=== PATIENT | male | born 1950 | race Caucasian/White ===

== ENCOUNTER 2017-01-18 12:16 | Emergency (ER) | payer MEDICARE ==
[~2017-01-18] VITALS: Ht 193 cm; Wt 123.4 kg
[~2017-01-18 12:16] MED LIST: ALBU8.5H2 IH; CEFD300C3 PO; CODE-54 PO; FLUT16SP22 NS; HYDR473S17 PO; LISI10TA PO; MNTL10T PO; OMEP-10 PO; ONDA-42 PO; OSLT75CRX PO; PENI500T PO; PRAV80TA2 PO
--- NOTE | 2017-01-18 13:57 | ED GI ---
General Chief Complaint: Abdominal/GI Problems Stated Complaint: ABDOMINAL PAIN Nursing Triage Note: ABD PAIN/CRAMPING X 4 WEEKS, MUCOUS STOOLS. HAS HAD 2-3 REGULAR BM LAST WEEK. HAD HAD RECENT CHANGE IN DIET FOR WEIGHT LOSS. HAD LEFT OVER PENICILLIN FROM APPROX 1 YEAR AGO AND SAW IMPROVEMENT WHILE TAKING, THEN RETURNED WHEN STOPPED TAKING. PT AMB INTO EXAM ROOM WITHOUT DIFFICULTY Sepsis Screen: No Definite Risk Source of Information: Patient Exam Limitations: No Limitations History of Present Illness Time Seen By Provider: 13:55 Initial Comments To ER with abdominal pain and cramping for 4 weeks. He's had some mucus in his stools but no apparent blood. No nausea or vomiting. No fevers or chills. He had some leftover penicillin from a dentist that he kept in his freezer. He finished a seven-day course of this last week which seemed to improve his symptoms. Timing/Duration: Intermittent Severity/Quality: Moderate Location: Suprapubic Radiation: No Radiation Associated Symptoms: No Nausea/Vomiting Allergies and Home Medications Allergies Coded Allergies: No Known Drug Allergies (Unverified , 09/10/11) Home Medications Acetaminophen/Codeine 1 Tab Tablet, 1 TAB PO, (Reported) Albuterol 8.5 Gm Hfa.aer.ad, 1 PUFF IH RTQ4HR, (Reported) 1 PUFFS Lisinopril 10 Mg Tablet, 10 MG PO DAILY, (Reported) Montelukast Sodium 10 Mg Tab, 10 MG PO DAILY, (Reported) Penicillin V Potassium 500 Mg Tablet, 1 TAB PO TID, #30 (Reported) Pravastatin Sodium 80 Mg Tablet, 80 MG PO DAILY, (Reported) Review of Systems Constitutional: see HPI EENTM: No Symptoms Reported Respiratory: No Symptoms Reported Cardiovascular: No Symptoms Reported Gastrointestinal: See HPI, Abdominal Pain, Denies Constipated, Denies Diarrhea , Denies Nausea Genitourinary: No Symptoms Reported Musculoskeletal: no symptoms reported Skin: no symptoms reported Psychiatric/Neurological: No Symptoms Reported Endocrine: No Symptoms Reported Past Dasigwr-Czxquh-Nsnxcm Hx Patient Social History Alcohol Use: Occasionally Uses Recreational Drug Use: No Smoking Status: Never a Smoker 2nd Hand Smoke Exposure: No Recent Foreign Travel: No Contact w/Someone Who Travel: No Recent Infectious Disease Expo: No Immunizations Up To Date Tetanus Booster (TDap): More than 5yrs Date of Influenza Vaccine: Jun 23, 2016 Seasonal Allergies Seasonal Allergies: Yes Surgeries HX Surgeries: Yes (Dental) Surgeries: Adenoidectomy, Tonsillectomy Respiratory Hx Respiratory Disorders: Yes Respiratory Disorders: Asthma Cardiovascular Hx Cardiac Disorders: Yes Cardiac Disorders: Hypertension Neurological Hx Neurological Disorders: No Reproductive System Hx Reproductive Disorders: No Sexually Transmitted Disease: No HIV/AIDS: No Genitourinary Hx Genitourinary Disorders: No Gastrointestinal Hx Gastrointestinal Disorders: No Musculoskeletal Hx Musculoskeletal Disorders: No Musculoskeletal Disorders: Fractures Endocrine Hx Endocrine Disorders: No HEENT HX ENT Disorders: No Cancer Hx Cancer: No Psychosocial Hx Psychiatric Problems: No Integumentary HX Skin/Integumentary Disorder: No Blood Transfusions Hx Blood Disorders: No Family Medical History Significant Family History: Heart Disease, COPD Physical Exam Vital Signs VS - Last 72 Hours, by Label 01/18/17 12:53 Temp 97.3 Pulse 94 Resp 18 B/P (MAP) 144/89 Pulse Ox 97 O2 Delivery Room Air Capillary Refill : Less Than 3 Seconds General Appearance: WD/WN, no apparent distress HEENT: PERRL/EOMI, normal ENT inspection Respiratory: no respiratory distress, no accessory muscle use Cardiovascular: regular rate, rhythm, no murmur Gastrointestinal: normal bowel sounds, non tender, soft Extremities: normal range of motion, non-tender Neurologic/Psychiatric: alert, normal mood/affect, oriented x 3 Progress/Results/Core Measures Results/Orders Lab Results Laboratory Tests Test 01/18/17 14:45 Range/Units White Blood Count 6.7 4.3-11.0 10^3/uL Red Blood Count 5.21 4.35-5.85 10^6/uL Hemoglobin 16.2 13.3-17.7 G/DL Hematocrit 45 40-54 % Mean Corpuscular Volume 87 80-99 FL Mean Corpuscular Hemoglobin 31 25-34 PG Mean Corpuscular Hemoglobin Concent 36 32-36 G/DL Red Cell Distribution Width 12.6 10.0-14.5 % Platelet Count 202 130-400 10^3/uL Mean Platelet Volume 11.2 H 7.4-10.4 FL Neutrophils (%) (Auto) 63 42-75 % Lymphocytes (%) (Auto) 27 12-44 % Monocytes (%) (Auto) 9 0-12 % Eosinophils (%) (Auto) 1 0-10 % Basophils (%) (Auto) 0 0-10 % Neutrophils # (Auto) 4.2 1.8-7.8 X 10^3 Lymphocytes # (Auto) 1.8 1.0-4.0 X 10^3 Monocytes # (Auto) 0.6 0.0-1.0 X 10^3 Eosinophils # (Auto) 0.1 0.0-0.3 10^3/uL Basophils # (Auto) 0.0 0.0-0.1 10^3/uL Sodium Level 138 135-145 MMOL/L Potassium Level 4.4 3.6-5.0 MMOL/L Chloride Level 106 98-107 MMOL/L Carbon Dioxide Level 20 L 21-32 MMOL/L Anion Gap 12 5-14 MMOL/L Blood Urea Nitrogen 13 7-18 MG/DL Creatinine 0.99 0.60-1.30 MG/DL Estimat Glomerular Filtration Rate > 60 BUN/Creatinine Ratio 13 Glucose Level 108 H 70-105 MG/DL Calcium Level 9.8 8.5-10.1 MG/DL Total Bilirubin 1.8 H 0.1-1.0 MG/DL Aspartate Amino Transf (AST/SGOT) 24 5-34 U/L Alanine Aminotransferase (ALT/SGPT) 28 0-55 U/L Alkaline Phosphatase 57 40-136 U/L Total Protein 7.3 6.4-8.2 G/DL Albumin 4.6 H 3.2-4.5 G/DL My Orders Orders - OMI WHITE APRN Ua Culture If Indicated (01/18/17 13:37) Cbc With Automated Diff (01/18/17 13:37) Comprehensive Metabolic Panel (01/18/17 13:37) Saline Lock/Iv-Start (01/18/17 13:37) Stool Culture (01/18/17 13:37) C Difficile Ag + Toxin A/B. (01/18/17 13:37) Ova And Parasite Exam (01/18/17 13:54) Ct Abdomen/Pelvis W (01/18/17 13:54) Saline Lock/Iv-Start (01/18/17 13:54) Iohexol Injection (Omnipaque 350 Mg/Ml 1 (01/18/17 14:15) Sodium Chloride Flush (Catheter Flush Sy (01/18/17 14:15) Ns (Ivpb) (Sodium Chloride 0.9% Ivpb Bag (01/18/17 14:15) Medications Given in ED Current Medications Medications Dose Ordered Sig/Jaspreet Route Start Time Stop Time Status Last Admin Dose Admin Iohexol 100 ml ONCE ONCE IV 01/18/17 14:15 01/18/17 14:16 DC 01/18/17 15:32 100 ML Sodium Chloride 10 ml NEEDED PRN IV 01/18/17 14:15 01/18/17 15:32 10 ML Sodium Chloride 100 ml ONCE ONCE IV 01/18/17 14:15 01/18/17 14:16 DC 01/18/17 15:32 80 ML Vital Signs/I&O Vital Sign - Last 12Hours 01/18/17 12:53 Temp 97.3 Pulse 94 Resp 18 B/P (MAP) 144/89 Pulse Ox 97 O2 Delivery Room Air Blood Pressure Mean: 107 Diagnostic Imaging Diagonstic Imaging: CT Comments NAME: EYAD GUERIN [facility] REC#: [id number] PT STATUS: REG ER : 1950 PHYSICIAN: OMI WHITE FUNDRAISING COORDINATOR ADMIT DATE: 01/18/17/ER Draft Date of Exam:01/18/17 CT ABDOMEN/PELVIS W PROCEDURE: CT abdomen and pelvis with contrast. TECHNIQUE: Multiple contiguous axial images were obtained through the abdomen and pelvis after administration of intravenous contrast. INDICATION: Diarrhea with low pelvic pain x 4 weeks. FINDINGS: The lung bases are clear. The liver appears normal. The gallbladder and bile ducts are normal. The pancreas and spleen are normal. The adrenal glands are normal. The kidneys show symmetrical nephrogram effect following IV contrast. There is a simple cyst anteriorly off the upper pole of the left kidney measuring 15 mm. There are no renal calculi. There is a tiny cyst off the upper pole of the right kidney. There are no solid masses. Delayed images show normal-appearing renal collecting systems bilaterally. The bladder is opacified and appears normal. The aorta and abdominal vessels show normal enhancement with contrast. Mild atherosclerotic disease is present. No evidence of aortic aneurysm. The stomach and small bowel are not distended. There is a moderate amount of stool retained in the colon. There is a 3 cm area of persistent stricture on the arterial and delayed phase in the distal sigmoid colon, likely representing an apple core lesion. No adenopathy is demonstrated in the pelvis. Bone windows show no blastic or lytic lesions. IMPRESSION: 1. Findings suggestive of an apple core lesion of the distal sigmoid colon measuring 3 cm in length. I would recommend direct visualization. 2. No findings are seen to demonstrate distant metastasis or adenopathy. 3. Benign cortical cysts are noted in the kidneys bilaterally. Dictated on workstation # [id number] Dict: 01/18/17 1548 Trans: 01/18/17 1607 [id number] Interpreted by: SACHA VELASQUEZ MD Electronically signed by: Departure Impression Impression: Primary Impression: lesion of sigmoid colon Disposition: HOME, SELF-CARE Condition: Stable Departure-Patient Inst. Decision time for Depature: 16:12 Referrals: SACHA MANCINI BRETT D DO JENKINS, XAVIER M MD KIDO, TAKAAKI MD NO,LOCAL PHYSICIAN (PCP) Primary Care Physician Patient Instructions: NO INSTRUCTIONS GIVEN Add. Discharge Instructions: 1. We have a sample of your stool that has been sent to the lab for evaluation for culture, parasites and C. difficile 2. Call one of the surgeons listed on Saturday morning to make an appointment for colonoscopy as there is a very concerning appearance of your sigmoid colon called an apple core appearance All discharge instructions reviewed with patient and/or family. Voiced understanding. OMI WHITE FUNDRAISING COORDINATOR Jan 18, 2017 13:56
[2017-01-18] MEDS ORDERED: NS 100 ML (IVPB) BAG IV ONE (14:15)
[2017-01-18] MEDS ORDERED: IOHEXOL 350 MG/ML 100 ML (OMNIPAQUE 350) VIAL IV ONE (14:15)
[2017-01-18] MEDS ORDERED: CATHETER FLUSH 10 ML SYR IV PRN (14:15)
[2017-01-18 14:56] LABS: BASOPHILS % (AUTO) 0 % (0-10); EOSINOPHILS # (AUTO) 0.1 10^3/uL (0.0-0.3); EOSINOPHILS % (AUTO) 1 % (0-10); LYMPHOCYTES # (AUTO) 1.8 X 10^3 (1.0-4.0); LYMPHOCYTES % (AUTO) 27 % (12-44); MEAN CORPUSCULAR HEMOGLOBIN 31 PG (25-34); MEAN CORPUSCULAR HGB CONC 36 G/DL (32-36); MEAN CORPUSCULAR VOLUME 87 FL (80-99); MEAN PLATELET VOLUME 11.2 FL (7.4-10.4); MONOCYTES # (AUTO) 0.6 X 10^3 (0.0-1.0); MONOCYTES % (AUTO) 9 % (0-12); NEUTROPHILS # (AUTO) 4.2 X 10^3 (1.8-7.8); NEUTROPHILS % (AUTO) 63 % (42-75); PLATELET COUNT 202 10^3/uL (130-400); RED BLOOD COUNT 5.21 10^6/uL (4.35-5.85); RED CELL DISTRIBUTION WIDTH 12.6 % (10.0-14.5); WHITE BLOOD COUNT 6.7 10^3/uL (4.3-11.0)
[2017-01-18 15:13] LABS: ALANINE AMINOTRANSFERASE 28 U/L (0-55); ALBUMIN 4.6 G/DL (3.2-4.5); ANION GAP 12 MMOL/L (5-14); ASPARTATE AMINO TRANSFERASE 24 U/L (5-34); BILIRUBIN,TOTAL 1.8 MG/DL (0.1-1.0); BLOOD UREA NITROGEN 13 MG/DL (7-18); BUN/CREATININE RATIO 13; CALCIUM 9.8 MG/DL (8.5-10.1); CARBON DIOXIDE 20 MMOL/L (21-32); CHLORIDE 106 MMOL/L (98-107); CREATININE SERUM 0.99 MG/DL (0.60-1.30); GFR ESTIMATED > 60; GLUCOSE 108 MG/DL (70-105); POTASSIUM 4.4 MMOL/L (3.6-5.0); SODIUM 138 MMOL/L (135-145); TOTAL PROTEIN 7.3 G/DL (6.4-8.2)
--- NOTE | 2017-01-18 16:07 | Diagnostic Imaging Report ---
PROCEDURE: CT abdomen and pelvis with contrast. TECHNIQUE: Multiple contiguous axial images were obtained through the abdomen and pelvis after administration of intravenous contrast. INDICATION: Diarrhea with low pelvic pain x 4 weeks. FINDINGS: The lung bases are clear. The liver appears normal. The gallbladder and bile ducts are normal. The pancreas and spleen are normal. The adrenal glands are normal. The kidneys show symmetrical nephrogram effect following IV contrast. There is a simple cyst anteriorly off the upper pole of the left kidney measuring 15 mm. There are no renal calculi. There is a tiny cyst off the upper pole of the right kidney. There are no solid masses. Delayed images show normal-appearing renal collecting systems bilaterally. The bladder is opacified and appears normal. The aorta and abdominal vessels show normal enhancement with contrast. Mild atherosclerotic disease is present. No evidence of aortic aneurysm. The stomach and small bowel are not distended. There is a moderate amount of stool retained in the colon. There is a 3 cm area of persistent stricture on the arterial and delayed phase in the distal sigmoid colon, likely representing an apple core lesion. No adenopathy is demonstrated in the pelvis. Bone windows show no blastic or lytic lesions. IMPRESSION: 1. Findings suggestive of an apple core lesion of the distal sigmoid colon measuring 3 cm in length. I would recommend direct visualization. 2. No findings are seen to demonstrate distant metastasis or adenopathy. 3. Benign cortical cysts are noted in the kidneys bilaterally. Dictated by: Dictated on workstation # [id number]
[2017-01-18 17:03] VITALS: BP 151/95
== END 2017-01-18 16:28 | disposition home or self-care (01) ==
LOC: EDUNIT# 12:16 → ER 12:19
DX: K63.9 Disease of intestine, unspecified (principal); N28.1 Cyst of kidney, acquired; I10 Essential (primary) hypertension; Z79.899 Other long term (current) drug therapy
CPT/HCPCS: 36415; 74177; 80053; 85025; 87045; 87046; 87324; 87328; 87329; 87449

== ENCOUNTER 2017-01-24 09:41 | Outpatient (CLI) | payer MEDICARE ==
[~2017-01-24] VITALS: Ht 193 cm; Wt 123.4 kg
[2017-01-25] MEDS ORDERED: CYCL1DRO OP (12:38)
== END 2017-01-24 13:52 ==
LOC: PREOP 09:41
PROVIDERS: ATTEND Surgery
DX: Z01.818 Encounter for other preprocedural examination (principal); R19.7 Diarrhea, unspecified

== ENCOUNTER 2017-01-25 11:57 | Day surgery (SDC) | payer MEDICARE ==
[~2017-01-25] VITALS: Ht 193 cm; Wt 123.4 kg
[2017-01-25] MEDS ORDERED: NS IV 500 ML 500 ML ONE (12:11)
[2017-01-25] MEDS ORDERED: FLUMAZENIL (ROMAZICON) 0.1 MG/ML 5 ML VIAL INJ PRN (12:15)
[2017-01-25] MEDS ORDERED: NALOXONE 0.4 MG/ML 1 ML (NARCAN) VIAL IVP PRN (12:15)
[2017-01-25] MEDS ORDERED: MIDAZOLAM 2 MG/2 ML (VERSED) VIAL ONE ×3 (12:23→12:24)
[2017-01-25] MEDS ORDERED: fentaNYL INJECTION 100 MCG/2 ML AMP ONE ×2 (12:24)
[2017-01-25] MEDS ORDERED: NS IV 500 ML 500 ML IV PRN (12:30)
[2017-01-25 12:34] VITALS: BP 130/71
[2017-01-25] MEDS ORDERED: CYCL1DRO OP (12:38)
[2017-01-25] MEDS: fentaNYL INJECTION 100 MCG/2 ML AMP IVP PRN ×2 (13:05→13:12)
[2017-01-25] MEDS: MIDAZOLAM 2 MG/2 ML (VERSED) VIAL IVP PRN ×3 (13:06→13:20)
--- NOTE | 2017-01-25 13:50 | Conscious Sedation/ASA ---
Conscious Sedation Pre-Proced ASA Class: 2 Airway Mallampati Classification: ([place] appropriate class) I. II. III, IV Lungs Heart ASA score ASA 1: a normal healthy patient ASA 2: a patient with a mild systemic disease (mid diabetes, controlled hypertension, obesity ASA 3: a patient with a severe systemic disease that limits activity (angina , COPD, prior Myocardial infarction) ASA 4: a patient with an incapacitating disease that is a constant threat to life (CHF, renal failure) ASA 5: a moribund patient not expected to survive 24 hrs. (ruptured aneurysm) ASA 6: a declared brain patient whose organs are being harvested. For emergent operations, add the letter E after the classification Grade 2 Sedation Plan: Discussed options with patient/fam Note The patient is an appropriate candidate to undergo the planned procedure, sedation, and anesthesia. The patient immediately re-assessed prior to indication. JHOAN DASILVA MD January 25, 2017 1:50 pm
--- NOTE | 2017-01-25 13:54 | Endoscopy Procedure Report ---
Endoscopy Report Date: January 25, 2017 Preoperative Diagnosis: Change in bowel habits Study Performed: Colonoscopy Procedure Instrument: Colonoscope Endo Procedure/Findings Findings 1.: Diverticulosis Recommendations: Recommendations: 1.: Colonscopy in 5 years JHOAN DASILVA MD January 25, 2017 1:54 pm
[2017-01-25 13:55] VITALS: BP 126/73
--- NOTE | 2017-01-25 14:03 | Discharge Inst-Simple/Standard ---
Discharge Inst-Standard Discharge Medications New, Converted or Re-Newed RX: Other Patient Instructions/Follow Up Plan of Care/Instructions/FU: F/u Prn Activity as Tolerated: Yes Discharge Diet: No Restrictions JHOAN DASILVA MD January 25, 2017 2:03 pm
[2017-01-25 14:45] VITALS: BP 136/82
[2017-01-25 14:52] VITALS: BP 136/82
--- NOTE | 2017-01-26 07:37 | OPERATIVE REPORT ---
DATE OF SERVICE: 01/25/2017 PROCEDURE: Colonoscopy. SURGEON: Jhoan Dasilva MD INDICATION OF PROCEDURE: This gentleman reported a change in his bowel habits. Informed consent was obtained after revealing the procedure in detail. DESCRIPTION OF PROCEDURE: He was placed in the left lateral decubitus position and his vital signs were monitored. Conscious sedation was achieved using Versed and fentanyl. Digital rectal examination was unremarkable. The colonoscope was then introduced in the rectum and advanced all the way up to the cecum. The quality of bowel preparation was rather sub-optimal. However, I was able to irrigate the mucosa and complete the examination. The scope was then withdrawn slowly and the mucosa examined in a systematic fashion. FINDINGS: A very few, sigmoid diverticula. No mucosal lesion was identified. He tolerated the procedure well and was taken back to the nursing area in stable condition. IMPRESSION: Change in bowel habits. Apple core deformity described on CT scan. No lesion identified on colonoscopy. Job ID: [id number] DocumentID: [id number] Dictated Date: 01/25/2017 13:41:50 Tallow Refiner Date: 01/26/2017 04:22:25 Dictated By: JHOAN DASILVA MD
== END 2017-01-25 14:54 | disposition home or self-care (01) ==
LOC: ENDO 11:57
PROVIDERS: ATTEND Surgery
DX: R19.4 Change in bowel habit (principal); K57.30 Diverticulosis of large intestine without perforation or abscess without bleeding

== ENCOUNTER → 2017-03-21 | Outpatient (CLI) | payer MEDICARE ==
[~2017-03-21] MED LIST changes: +CYCL1DRO OP
--- NOTE | 2017-03-21 16:23 | Diagnostic Imaging Report ---
PROCEDURE: US Carotid Duplex Bilateral. TECHNIQUE: Multiple real-time grayscale images were obtained over the carotid arteries in various projections bilaterally. Additional duplex Doppler and color Doppler images were also obtained. INDICATION: TIA. FINDINGS: Grayscale images demonstrate mild atherosclerotic plaque along the carotid bifurcation bilaterally. The color Doppler evaluation demonstrates patency of the common, internal and external carotid arteries bilaterally. There is antegrade flow demonstrated in both vertebral arteries. Peak systolic velocities in the right ICA are 73, 73 and 58 cm/s from proximal to distal and on the left 81, 60 and 61 cm/s. ICA/CCA ratios are up to 0.9 on the right side and up to 1 on the left. IMPRESSION: Mild plaque at the carotid bifurcation bilaterally with estimated underlying stenosis in the range of 0-40% bilaterally. Dictated by: Dictated on workstation # [id number]
== END ==
LOC: RAD 08:08
PROVIDERS: ATTEND Family Medicine
DX: G45.9 Transient cerebral ischemic attack, unspecified (principal)
CPT/HCPCS: 93880

== ENCOUNTER 2017-11-28 07:51 | Emergency (ER) | payer MEDICARE ==
[~2017-11-28] VITALS: Ht 193 cm; Wt 124.7 kg
--- OUTSIDE RECORDS SUMMARY | 2017-11-28 07:56 | XMS REPORT | Continuity of Care Document ---
Author Author [facility] Organization [facility] Address Unknown Phone Unavailable Allergies Active Description Code Type Severity Reaction Onset Reported/Identified Relationship to Patient Clinical Status Yes No Known Drug Allergies [id number] Drug Allergy Unknown N/A 09/10/2011 Medications There is no data. Problems Date Dx Coded Attending Type Code Diagnosis Diagnosed By 09/10/2011 Ot 558.9 09/10/2011 Ot 787.91 10/28/2014 DIONNE KINGSLEY Ot 487.1 10/28/2014 DIONNE KINGSLEY Ot 780.60 02/09/2015 OMI WHITE APRN Ot 473.9 02/09/2015 OMI WHITE APRN Ot 486 02/09/2015 OMI WHITE JUNIOR ACCOUNTANT Ot 786.2 02/25/2015 MARICHUY HAINES, VIRGEN T Ot 522.5 02/25/2015 MARICHUY HAINES, VIRGEN T Ot 525.9 01/18/2017 OMI WHITE APRN Ot I10 ESSENTIAL (PRIMARY) HYPERTENSION 01/18/2017 OMI WHITE APRN Ot K63.9 DISEASE OF INTESTINE, UNSPECIFIED 01/18/2017 OMI WHITE JUNIOR ACCOUNTANT Ot N28.1 CYST OF KIDNEY, ACQUIRED 01/18/2017 OMI WHITE JUNIOR ACCOUNTANT Ot R10.30 LOWER ABDOMINAL PAIN, UNSPECIFIED 01/18/2017 OMI WHITE JUNIOR ACCOUNTANT Ot Z79.899 OTHER [facility] (CURRENT) DRUG THERAPY 01/20/2017 OMI WHITE JUNIOR ACCOUNTANT Ot I10 ESSENTIAL (PRIMARY) HYPERTENSION 01/20/2017 OMI WHITE JUNIOR ACCOUNTANT Ot K63.9 DISEASE OF INTESTINE, UNSPECIFIED 01/20/2017 OMI WHITE JUNIOR ACCOUNTANT Ot N28.1 CYST OF KIDNEY, ACQUIRED 01/20/2017 OMI WHITE JUNIOR ACCOUNTANT Ot R10.30 LOWER ABDOMINAL PAIN, UNSPECIFIED 01/20/2017 OMI WHIET JUNIOR ACCOUNTANT Ot Z79.899 OTHER ANIMAL HUSBANDRY TECHNICIAN (CURRENT) DRUG THERAPY 01/25/2017 JHOAN DASILVA MD Ot R19.7 DIARRHEA, UNSPECIFIED 01/25/2017 JHOAN DASILVA MD Ot Z01.818 ENCOUNTER FOR OTHER PREPROCEDURAL EXAMIN 01/25/2017 JHOAN DASILVA MD, Ot K57.30 DVRTCLOS OF LG INT W/O PERFORATION OR AB 01/25/2017 JHOAN DASILVA MD Ot R19.4 CHANGE IN BOWEL HABIT 01/31/2017 JHOAN DASILVA MD Ot K57.30 DVRTCLOS OF LG INT W/O PERFORATION OR AB 01/31/2017 JHOAN DASILVA MD Ot R19.4 CHANGE IN BOWEL HABIT 03/15/2017 LARISSA HAINES, TIMMY Chavira Ot G45.9 TRANSIENT CEREBRAL ISCHEMIC ATTACK, UNSP 03/21/2017 LARISSA HAINES, TIMMY Chavira Ot G45.9 TRANSIENT CEREBRAL ISCHEMIC ATTACK, UNSP 03/21/2017 TIMMY DIAS MD Ot G45.9 TRANSIENT CEREBRAL ISCHEMIC ATTACK, UNSP 03/21/2017 TIMMY DIAS MD Ot G45.9 TRANSIENT CEREBRAL ISCHEMIC ATTACK, UNSP 03/27/2017 TIMMY DIAS MD C Ot G45.9 TRANSIENT CEREBRAL ISCHEMIC ATTACK, UNSP 04/12/2017 TIMMY DIAS MD C Ot G45.9 TRANSIENT CEREBRAL ISCHEMIC ATTACK, UNSP 04/19/2017 TIMMY DIAS MD C Ot G45.9 TRANSIENT CEREBRAL ISCHEMIC ATTACK, UNSP Procedures There is no data. Results Test Result Range Complete blood count (CBC) with automated white blood cell (WBC) differential - 01/18/17 14:45 Blood leukocytes automated count (number/volume) 6.7 10*3/uL 4.3-11.0 Blood erythrocytes automated count (number/volume) 5.21 10*6/uL 4.35-5.85 Venous blood hemoglobin measurement (mass/volume) 16.2 g/dL 13.3-17.7 Blood hematocrit (volume fraction) 45 % 40-54 Automated erythrocyte mean corpuscular volume 87 [foz_us] 80-99 Automated erythrocyte mean corpuscular hemoglobin (mass per erythrocyte) 31 pg 25-34 Automated erythrocyte mean corpuscular hemoglobin concentration measurement ( mass/volume) 36 g/dL 32-36 Automated erythrocyte distribution width ratio 12.6 % 10.0-14.5 Automated blood platelet count (count/volume) 202 10*3/uL 130-400 Automated blood platelet mean volume measurement 11.2 [foz_us] 7.4-10.4 Automated blood neutrophils/100 leukocytes 63 % 42-75 Automated blood lymphocytes/100 leukocytes 27 % 12-44 Blood monocytes/100 leukocytes 9 % 0-12 Automated blood eosinophils/100 leukocytes 1 % 0-10 Automated blood basophils/100 leukocytes 0 % 0-10 Blood neutrophils automated count (number/volume) 4.2 10*3 1.8-7.8 Blood lymphocytes automated count (number/volume) 1.8 10*3 1.0-4.0 Blood monocytes automated count (number/volume) 0.6 10*3 0.0-1.0 Automated eosinophil count 0.1 10*3/uL 0.0-0.3 Automated blood basophil count (count/volume) 0.0 10*3/uL 0.0-0.1 Comprehensive metabolic panel - 01/18/17 14:45 Serum or plasma sodium measurement (moles/volume) 138 mmol/L 135-145 Serum or plasma potassium measurement (moles/volume) 4.4 mmol/L 3.6-5.0 Serum or plasma chloride measurement (moles/volume) 106 mmol/L 98-107 Carbon dioxide 20 mmol/L 21-32 Serum or plasma anion gap determination (moles/volume) 12 mmol/L 5-14 Serum or plasma urea nitrogen measurement (mass/volume) 13 mg/dL 7-18 Serum or plasma creatinine measurement (mass/volume) 0.99 mg/dL 0.60-1.30 Serum or plasma urea nitrogen/creatinine mass ratio 13 NRG Serum or plasma creatinine measurement with calculation of estimated glomerular filtration rate > NRG Serum or plasma glucose measurement (mass/volume) 108 mg/dL 70-105 Serum or plasma calcium measurement (mass/volume) 9.8 mg/dL 8.5-10.1 Serum or plasma total bilirubin measurement (mass/volume) 1.8 mg/dL 0.1-1.0 Serum or plasma alkaline phosphatase measurement (enzymatic activity/volume) 57 U/L 40-136 Serum or plasma aspartate aminotransferase measurement (enzymatic activity/ volume) 24 U/L 5-34 Serum or plasma alanine aminotransferase measurement (enzymatic activity/volume ) 28 U/L 0-55 Serum or plasma protein measurement (mass/volume) 7.3 g/dL 6.4-8.2 Serum or plasma albumin measurement (mass/volume) 4.6 g/dL 3.2-4.5 C DIFFICILE AG + TOXIN A/B. - 01/18/17 15:44 RESULTS NEGATIVE FOR ANTIGEN AND TOXIN A/B NRG [id number] - 01/18/17 15:44 [id number] FOOTNOTE NRG Stool bacteria identification by culture - 01/18/17 15:44 Stool bacteria identification by culture N2 NRG Encounters ACCT No. Visit Date/Time Discharge Status Pt. Type Provider Facility Loc./Unit Complaint [id number] 03/21/2017 08:08:00 03/21/2017 23:59:59 CLS Outpatient LARISSA HAINES, TIMMY Chavira [facility] RAD G45.9 TIA [id number] 01/25/2017 11:57:00 01/25/2017 14:54:00 DIS Outpatient BROWN HAINES, JHOAN [facility] ENDO ABNORMAL CT/ STRICTURE/DIARRHEA/MUCUS/SCREENING [id number] 01/24/2017 09:41:00 01/24/2017 13:52:00 DIS Outpatient BROWN HAINES, JHOAN Hopkins [facility] PREOP COLONOSCOPY [id number] 01/18/2017 12:19:00 01/18/2017 16:28:00 DIS Emergency OMI WHITE APRN [facility] ER ABDOMINAL PAIN [id number] 02/25/2015 00:16:00 02/25/2015 03:07:00 DIS Emergency MARICHUY HAINES, VIRGEN [place]astume [facility] ER [id number] 02/09/2015 20:11:00 02/09/2015 21:32:00 DIS Emergency OMI WHITE APRN [facility] ER [id number] 10/28/2014 20:35:00 10/28/2014 22:34:00 DIS Emergency DIONNE KINGSLEY [facility] ER [id number] 09/10/2011 08:18:00 Document Registration
--- NOTE | 2017-11-28 08:37 | ED EENT ---
History of Present Illness General Chief Complaint: Oral/Throat Problems Stated Complaint: SWALLOWED TOOTHPICK Nursing Triage Note: PATIENT STATES THAT HE FELL ASLEEP CHEWING ON A TOOTHPICK TWO DAYS AGO. HE WOKE UP AND COULD NOT FIND THE TOOTH PICK AND HIS THROAT HAS BEEN "SCRATCHY" EVER SINCE. hE IS VERY CONCERNED THAT HE MAY HAVE SWALLOWED IT. Source: patient Exam Limitations: no limitations History of Present Illness Date Seen by Provider: Nov 28, 2017 Time Seen by Provider: 08:36 Initial Comments The patient is a 67-year-old white male who presents with a feeling of a scratchy throat. He reports that 2 days ago he fell asleep inadvertently with a toothpick in his mouth. When he arose he had a scratchy sensation in his throat. He could not find the toothpick. His first heard of this this morning and insisted he come here. He has had no difficulty swallowing. There is no abdominal pain. The toothpick was plastic. Location: throat Prearrival Treatment: no prearrival treatment Associated Symptoms: other (no dysphagia) Allergies and Home Medications Allergies Coded Allergies: No Known Drug Allergies (Unverified , 09/10/11) Home Medications Cyclosporine 1 Each Droperette, 1 EACH OP DAILY, (Reported) Patient Home Medication List Home Medication List Reviewed: Yes Review of Systems Constitutional: see HPI Eyes: No Symptoms Reported Ears: No Symptoms Reported Nose: no symptoms reported Mouth: no symptoms reported Throat: pain, hoarse Respiratory: no symptoms reported Cardiovascular: no symptoms reported Gastrointestinal: no symptoms reported Musculoskeletal: no symptoms reported Skin: no symptoms reported Neurological: No Symptoms Reported Hematologic/Lymphatic: No Symptoms Reported Immunological/Allergic: no symptoms reported Past Xpnyccg-Scptbb-Dcfmsn Hx Patient Social History Alcohol Use: Rarely Uses Alcohol Beverage of Choice: Beer Recreational Drug Use: No Smoking Status: Never a Smoker 2nd Hand Smoke Exposure: No Recent Foreign Travel: No Contact w/Someone Who Travel: No Recent Infectious Disease Expo: No Recent Hopitalizations: No Physical Abuse: No Sexual Abuse: No Immunizations Up To Date Tetanus Booster (TDap): More than 5yrs Date of Influenza Vaccine: Jun 23, 2016 Seasonal Allergies Seasonal Allergies: Yes Surgeries History of Surgeries: Yes (Dental) Surgeries: Adenoidectomy, Tonsillectomy Respiratory History of Respiratory Disorde: No Respiratory Disorders: Asthma Cardiovascular History of Cardiac Disorders: Yes (currently no longer needing meds) Cardiac Disorders: Hypertension Neurological History of Neurological Disord: No Reproductive System Hx Reproductive Disorders: No Sexually Transmitted Disease: No HIV/AIDS: No Gastrointestinal History of Gastrointestinal Di: Yes Musculoskeletal History of Musculoskeletal Dis: Yes (LEFT ARM AT 5 YRS, CLAVICLE IN HS) Musculoskeletal Disorders: Fractures Endocrine History of Endocrine Disorders: No Cancer History of Cancer: No Psychosocial History of Psychiatric Problem: No Suicide Risk Score: 0 Integumentary History of Skin or Integumenta: No Blood Transfusions History of Blood Disorders: No Family Medical History Significant Family History: Heart Disease, COPD Physical Exam Vital Signs Vital Signs - First Documented 11/28/17 07:59 Temp 97.9 Pulse 83 Resp 18 B/P (MAP) 175/112 (133) Pulse Ox 98 O2 Delivery Room Air General Appearance: WD/WN, no apparent distress, mild distress, moderate distress, severe distress, cachetic Eyes: bilateral eye normal inspection, bilateral eye PERRL, bilateral eye EOMI Mouth/Throat: normal mouth inspection, pharynx normal Neck: non-tender, full range of motion Cardiovascular: normal peripheral pulses, regular rate, rhythm, no edema, no gallop, no JVD, no murmur Respiratory: chest non-tender, lungs clear, normal breath sounds, no respiratory distress, no accessory muscle use Neurologic/Psychiatric: 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 Crook surgery on-call at 0840. He responded at 0850. After findings were discussed he suggested that I talked to Dr. Bosch as he felt that pharyngoscopy would be less invasive. Dr. Bosch was paged at 0850. After discussion and as he was about to start a case that was a one and half to 2 hours long he suggested that we have the patient returned to his office at 1230 FOR pharyngoscopy. This was arranged. Impression Impression: Primary Impression: Pharyngeal pain Additional Impression: possible impacted toothpick Disposition: HOME, SELF-CARE Condition: Stable/Unchanged Departure-Patient Inst. Decision time for Depature: 09:12 Referrals: TIMMY DIAS MD (PCP/Family) Primary Care Physician Add. Discharge Instructions: All discharge instructions reviewed with patient and/or family. Voiced understanding. Present to Dr Bosch's office in the [facility] block [facility] at 1230 today. Take only liquids until QUYEN LOVE MD Nov 28, 2017 08:37
[2017-11-28 09:24] VITALS: BP 178/102
== END 2017-11-28 09:27 | disposition home or self-care (01) ==
LOC: EDUNIT# 07:51 → ER 07:52
DX: R07.0 Pain in throat (principal); J45.909 Unspecified asthma, uncomplicated; Z82.49 Family history of ischemic heart disease and other diseases of the circulatory system; Z90.89 Acquired absence of other organs
CPT/HCPCS: 99282

== ENCOUNTER 2019-01-17 11:25 | Emergency (ER) | payer MEDICARE ==
[~2019-01-17] VITALS: Ht 193 cm; Wt 118.8 kg
--- NOTE | 2019-01-17 11:41 | ED Integumentary General ---
General Chief Complaint: Bite-Animal/Human/Insect Stated Complaint: TICK BITE Source: patient Exam Limitations: no limitations History of Present Illness Date Seen by Provider: Jan 17, 2019 Time Seen by Provider: 11:22 Initial Comments Patient reports ER by private conveyance with chief complaint that a tick bit him in his left armpit approximately one week ago. The tick was still flat when he pulled it off. He clean the site with alcohol and then some triple antibiotic ointment. He's not having any swelling tenderness discharge or rash. He's had no fevers chills or bodyaches. Apparently his son had a tick bite few weeks ago and ended up with a secondary infection it sounds like an abscess that had to be drained and put on antibiotics and so his insisted he come to the ER to have it checked out. Allergies and Home Medications Allergies Coded Allergies: No Known Drug Allergies (Unverified , 09/10/11) Home Medications Cyclosporine 1 Each Droperette, 1 EACH OP DAILY, (Reported) Patient Home Medication List Home Medication List Reviewed: Yes Review of Systems Review of Systems Constitutional: No chills, No diaphoresis EENTM: No ear discharge, No hearing loss Respiratory: No cough, No short of breath Cardiovascular: No chest pain, No edema Gastrointestinal: No abdominal pain, No constipation, No nausea Past Wvkdpvv-Lhlofn-Ygkalr Hx Patient Social History Alcohol Use: Occasionally Uses Alcohol Beverage of Choice: Beer Recreational Drug Use: No Smoking Status: Current Everyday Smoker 2nd Hand Smoke Exposure: No Recent Foreign Travel: No Contact w/Someone Who Travel: No Recent Hopitalizations: No Immunizations Up To Date Tetanus Booster (TDap): More than 5yrs Date of Influenza Vaccine: Jun 23, 2016 Seasonal Allergies Seasonal Allergies: Yes Past Medical History Surgeries: Yes (Dental) Adenoidectomy, Tonsillectomy Respiratory: No Asthma Cardiac: Yes (currently no longer needing meds) Hypertension Neurological: No Reproductive Disorders: No Sexually Transmitted Disease: No HIV/AIDS: No Gastrointestinal: Yes Musculoskeletal: Yes (LEFT ARM AT 5 YRS, CLAVICLE IN HS) Fractures Endocrine: No Cancer: No Psychosocial: No Integumentary: No Blood Disorders: No Family Medical History Heart Disease, COPD Physical Exam Vital Signs Capillary Refill : General Appearance: WD/WN, no apparent distress HEENT: PERRL/EOMI, pharynx normal Neck: full range of motion, normal inspection Cardiovascular: normal peripheral pulses, regular rate, rhythm Respiratory: no respiratory distress, no accessory muscle use Skin: other (small area of about 4 mm diameter of erythema without induration. No erythema migrans. No pointing or fluctuance.) Progress/Results/Core Measures Progress Progress Note : Time: 11:39 Progress Note Previous tick bite without evidence of secondary infection or Lyme's or [place] spotted fever. We'll provide him with counseling. Departure Impression Primary Impression: Tick bite of axillary region Qualified Codes: S40.862A - Insect bite (nonvenomous) of left upper arm, initial encounter; W57.XXXA - Bitten or stung by nonvenomous insect and other nonvenomous arthropods, initial encounter Disposition: 01 HOME, SELF-CARE Condition: Stable Departure-Patient Inst. Decision time for Depature: 11:39 Referrals: TIMMY DIAS MD (PCP/Family) Primary Care Physician Patient Instructions: Insect Bites and Stings (DC) Add. Discharge Instructions: Just monitor the site for increasing redness, heat, increasing pain or swelling. If he sees things have it reexamined by your physician. You can use warm compresses for tenderness. Keep the wound clean and it should go away in the next week or 2. If you are having body aches rash or fevers then you should follow-up with your primary care provider for reexamination. All discharge instructions reviewed with patient and/or family. Voiced understanding. AMADEO GARCIA Jan 17, 2019 11:41
[2019-01-17 11:44] VITALS: BP 152/84
== END 2019-01-17 11:49 | disposition home or self-care (01) ==
LOC: EDUNIT# 11:25 → ER 11:26
DX: S40.862A Insect bite (nonvenomous) of left upper arm, initial encounter (principal); J45.909 Unspecified asthma, uncomplicated; I10 Essential (primary) hypertension; F17.200 Nicotine dependence, unspecified, uncomplicated; Z90.89 Acquired absence of other organs; Z82.49 Family history of ischemic heart disease and other diseases of the circulatory system; W57.XXXA Bitten or stung by nonvenomous insect and other nonvenomous arthropods, initial encounter
CPT/HCPCS: 99283

== ENCOUNTER → 2021-08-01 | Outpatient (CLI) | payer MEDICARE | LOC: CARD 10:00 | PROVIDERS: ATTEND Internal Medicine Cardiovascular Disease | DX: I08.0 Rheumatic disorders of both mitral and aortic valves (principal) | CPT/HCPCS: 93306 ==

== ENCOUNTER → 2021-08-01 | Outpatient (CLI) | payer MEDICARE ==
--- NOTE | 2021-08-01 10:21 | Diagnostic Imaging Report ---
PROCEDURE: US carotid duplex, bilateral. TECHNIQUE: Multiple real-time grayscale images were obtained over the carotid arteries in various projections, bilaterally. Additional spectral analysis and color Doppler duplex images were also obtained. INDICATION: Syncope The previous carotid Doppler exam performed on 03/21/2017 noted mild plaque formation involving the carotid bifurcations but failed to show any sign of a hemodynamically significant stenosis of the common or internal carotid arteries. On this study there is still mild hard and soft plaque formation involving both carotid bifurcations. The flow velocities failed to show any sign of a hemodynamically significant stenosis of the common or internal carotid arteries. Both vertebral arteries were noted and there was antegrade flow bilaterally. IMPRESSION: There is mild atherosclerotic disease involving both carotid systems but there is still no evidence for hemodynamically significant stenosis of the common or internal carotid arteries. Parameters based on the consensus panel Carrizales-Scale and Doppler ultrasound criteria published July 2003, Radiology, Volume 229. DOPPLER (peak systolic velocity M/S Right Left CCA .64 .85 ICA Proximal .80 .67 ICA Mid .73 .63 ICA Distal .50 .81 RATIO 1.23 0.95 ECA .83 .63 VERT .41 .37 Dictated by: Dictated on workstation # [id number]
== END ==
LOC: RAD 08:25
PROVIDERS: ATTEND Family Medicine
DX: I65.23 Occlusion and stenosis of bilateral carotid arteries (principal)
CPT/HCPCS: 93880

== ENCOUNTER → 2022-03-15 | Outpatient (CLI) | payer MEDICARE ==
[~2022-03-15] VITALS: Ht 193 cm; Wt 110.0 kg
[~2022-03-15] MED LIST changes: +REGADENOSON 0.4 MG/5 ML SYR (LEXISCAN) IV ONE
[2022-03-15] MEDS: CATHETER FLUSH 10 ML SYR IVP PRN ×2 (07:52→09:13)
[2022-03-15 09:10] VITALS: BP 154/697
--- NOTE | 2022-03-19 12:49 | NUCLEAR STRESS TEST ---
REGADENOSON NUCLEAR STRESS Date of procedure: 03/15/2022. Primary care provider: Alphonse Alicia MD Admitting physician: Carlos Borjas Jr., MD. INDICATION: Abnormal electrocardiogram. BASELINE ELECTROCARDIOGRAM: Sinus bradycardia at 58 bpm with poor R wave progression. STRESS TEST PROCEDURE: The patient was administered 0.4 mg of intravenous Regadenoson. The resting heart rate was 50 bpm and the peak heart rate was 101 bpm. The resting blood pressure was 154/97 mmHg and the minimum blood pressure was 75/61 mmHg. This represents a normal heart rate and a normal blood pressure response to Regadenoson. The test was stopped due to the protocol. There was no chest discomfort during the test. There were isolated premature ventricular complexes during the test. There were no significant stress induced electrocardiogram changes. NUCLEAR PROCEDURE: The patient was administered 10.2 mCi of intravenous technetium 99m Tetrofosmin at rest for the rest images. The patient was subsequently administered 30.5 mCi of intravenous technetium 99m Tetrofosmin at peak stress for the stress images. Following an appropriate wait after each injection, imaging was obtained. The images were subsequently processed and reformatted in the usual views. Gated imaging was obtained. The image quality was adequate with a mild degree of gastrointestinal attenuation artifact. CT at tenuation correction was used as a adjunct to standard imaging. Both the corrected and uncorrected images were reviewed for interpretation. NUCLEAR RESULTS: There was normal myocardial perfusion in all segments without evidence of infarction or ischemia. There was normal left ventricular chamber size with an end-diastolic volume of 78 mL and an end-systolic volume of 37 mL. There was no evidence of transient ischemic dilatation. The TID ratio was 0.98. There was paradoxical septal motion of undetermined etiology with overall normal left ventricular systolic function with a calculated ejection fraction of 53%. IMPRESSION: 1. Normal heart rate and blood pressure response to regadenoson. 2. There was no chest discomfort or electrocardiogram changes during the test. 3. There were isolated premature ventricular complexes during the test. 4. There was normal myocardial perfusion in all segments without evidence of infarction or ischemia. 5. There was paradoxical septal motion of undetermined etiology with overall normal left ventricular systolic function with a calculated ejection fraction of 53%. Certain portions of this document may have been dictated utilizing voice recognition technology. Inherent to this technology, typographical and grammatical errors may exist. As much as I am diligent to identify and correct these mistakes, some errors may remain in the document. CARLOS BORJAS JR, MD Mar 19, 2022 12:49
--- NOTE | 2022-03-19 15:59 | Holter Monitor ---
HOLTER MONITOR DATE OF PROCEDURE: 03/15/2022. INDICATION: Abnormal electrocardiogram. PROCEDURE: A 24-hour Holter monitor was obtained for a total of 24 hours. The study quality is adequate. RESULTS: 1. Baseline sinus bradycardia with an average heart rate of 56 bpm, ranging from 44-92 bpm. 2. There were occasional (206), isolated premature supraventricular complexes and 2 supraventricular couplets. 3. There were occasional (763), isolated premature ventricular complexes, 15 ve ntricular couplets and 1 ventricular triplet. 4. There were no pauses exceeding 2 seconds in duration. 5. There were no diary entries. IMPRESSION: 1. This is a 24-hour Holter monitor report. 2. Baseline sinus bradycardia with an average heart rate of 56 bpm, ranging from 44-92 bpm with occasional supraventricular ectopy as isolated and couplet beats and occasional ventricular ectopy as isolated and couplet beats as well as 1 ventricular triplet (nonsustained ventricular tachycardia). 3. There were no diary entries. Certain portions of this document may have been dictated utilizing voice recognition technology. Inherent to this technology, typographical and grammatical errors may exist. As much as I am diligent to identify and correct these mistakes, some errors may remain in the document. TAVON CHRISTIAN JR, MD Mar 19, 2022 15:59
== END ==
LOC: CARD 08:15
PROVIDERS: ATTEND Internal Medicine Cardiovascular Disease
DX: R94.31 Abnormal electrocardiogram [ECG] [EKG] (principal)
CPT/HCPCS: 78452; 93017; 93225; 93226; A9502

== ENCOUNTER 2023-05-09 08:34 | Observation (INO) | payer MEDICARE ==
[~2023-05-09] VITALS: Ht 193 cm; Wt 121.0 kg
[~2023-05-09 08:34] MED LIST changes: -REGADENOSON 0.4 MG/5 ML SYR (LEXISCAN) IV ONE
--- NOTE | 2023-05-09 09:03 | ED General ---
General Chief Complaint: Altered Mental Status Stated Complaint: ALTERED MENTAL STATUS Nursing Triage Note: ARRIVED VIA EMS FROM HOME. PT WOKE UP THIS MORNING AND WAS ACTING FINE. PT FELL AND ACCODING TO HIT HIS HEAD AND WAS KNOCKED OUT. PT STATES HE DID NOT HIS HIS HEAD. TOLD EMS HE ACTED FINE AFTER THE FALL THEN BECAME CONFUSED. PT ALERT TO NAME ONLY. TAKES A BABY ASA DAILY. RECNETLY TOOK OFF [facility] Source of Information: Patient Exam Limitations: No Limitations History of Present Illness Date Seen by Provider: May 09, 2023 Time Seen by Provider: 09:03 Initial Comments Patient is a 72-year-old male with a history of hypertension and hypercholesterolemia who presents to the emergency room after a fall down some stairs this morning between 7 and 730. Patient states "7 stairs" thought it was 2 r 3. His relates that she heard something in the foyer as she was sitting on the couch she states that her had told her that his feet felt numb. When she walked in she found him laying on the floor looking up at the ceiling poorly responsive. She did call EMS. After a time he was able to get himself up off the floor into the couch. EMS checked his vital signs and they were normal. They assessed him and offered him transport, he declined. As he was signing his refusal he did not sign his name which his states was unusual. She states after they left he advised her that he "did not feel right". He could not describe how he felt but something was not normal. She called EMS back and he was transported. It is unclear whether or not he actually hit his head or had a loss of consciousness as related to the fall down the stairs. Or whether or not he had a syncopal event on the stairs and fell. His states yesterday they went to his doctor's office clinic because he was not feeling very well and they discontinued his blood pressure medicine believing that maybe his blood pressure was too low. No recent illnesses. No fever, chills. No chest pain, no n/v/d. No urinary complaints. No bloody stool. No prior stroke or heart issues. He is confused as to the year. Does know that it is "close to May", off by one day on the day of the week. Seems confused slightly - looking to his to verify answers to questions. Timing/Duration: 1-3 Hours Severity: Moderate Associated Systoms: Denies Symptoms Allergies and Home Medications Allergies Coded Allergies: No Known Drug Allergies (Unverified , 05/09/23) Patient Home Medication List Home Medication List Reviewed: Yes Aspirin (Aspirin EC) 81 Mg Tablet.dr, 81 MG PO DAILY, (Reported) Entered as Reported by: ÁNGEL FLORES on 05/09/23 154 Last Action: Held Rosuvastatin Calcium (Rosuvastatin Calcium) 10 Mg Tablet, 10 MG PO HS, (Reported) Entered as Reported by: ÁNGEL FLORES on 05/09/23 154 Last Action: Continued Discontinued Medications Cyclosporine (Restasis) 1 Each Droperette, 1 EACH OP DAILY, (Reported) Discontinued Reason: No Longer Taking Entered as Reported by: GINA NUNEZ on 01/25/17 1238 Last Action: Discontinued Review of Systems Review of Systems Constitutional: see HPI EENTM: no symptoms reported Respiratory: no symptoms reported Cardiovascular: no symptoms reported Gastrointestinal: no symptoms reported Genitourinary: no symptoms reported Musculoskeletal: no symptoms reported Skin: no symptoms reported Psychiatric/Neurological: Other (confusing) Past Pvqkjyk-Kkwfob-Wkvllw Hx Patient Social History Tobacco Use?: No Substance use?: No Alcohol Use?: Yes Immunizations Up To Date Tetanus Booster (TDap): More than 5yrs Seasonal Allergies Seasonal Allergies: Yes Past Medical History Surgeries: Yes (Dental) Adenoidectomy, Tonsillectomy Respiratory: No Asthma Cardiac: Yes Hypertension Neurological: No Reproductive Disorders: No Sexually Transmitted Disease: No HIV/AIDS: No Gastrointestinal: Yes Musculoskeletal: Yes (LEFT ARM AT 5 YRS, CLAVICLE IN HS) Fractures Endocrine: No Cancer: No Psychosocial: No Integumentary: No Blood Disorders: No Family Medical History Heart Disease, COPD Physical Exam Vital Signs Vital Signs - First Documented 05/09/23 08:40 Temp 36.2 Pulse 60 Resp 16 B/P (MAP) 163/102 (122) Pulse Ox 98 O2 Delivery Room Air Capillary Refill : Less Than 3 Seconds Height, Weight, BMI Height: 6'4.00" Weight: 262lbs. 0oz. [id number]; 28.00 BMI Method:Stated General Appearance: No Apparent Distress, WD/WN Eyes: Bilateral Eye Normal Inspection, Bilateral Eye PERRL, Bilateral Eye EOMI HEENT: PERRL/EOMI Neck: Full Range of Motion, Normal Inspection, Non Tender, Supple Respiratory: Lungs Clear, Normal Breath Sounds, No Accessory Muscle Use, No Respiratory Distress Cardiovascular: Regular Rate, Rhythm, Normal Peripheral Pulses Gastrointestinal: Normal Bowel Sounds, Non Tender, Soft Extremity: Normal Capillary Refill, Normal Inspection, Normal Range of Motion, Non Tender, No Calf Tenderness Neurologic/Psychiatric: Alert, No Motor/Sensory Deficits, silk weaver II-XII Norm as Tested, Depressed Affect; No Facial Droop, No Sensory Deficit; Other (no pronator drift; normal F to nose; 2+ patellar DTR's) Skin: Normal Color, Warm/Dry Progress/Results/Core Measures Suspected Sepsis SIRS Temperature: Pulse: 60 Respiratory Rate: 16 Laboratory Tests 05/09/23 08:40: White Blood Count 5.9 Blood Pressure 163 /102 Mean: 122 Laboratory Tests 05/09/23 08:40: Creatinine 0.98, INR Comment 1.1, Platelet Count 156, Total Bilirubin 1.7H Results/Orders Lab Results Laboratory Tests Test 05/09/23 08:40 05/09/23 09:26 05/09/23 10:36 05/09/23 13:10 Range/Units White Blood Count 5.9 4.3-11.0 10^3/uL Red Blood Count 4.97 4.30-5.52 10^6/uL Hemoglobin 15.4 13.3-17.7 g/dL Hematocrit 45 40-54 % Mean Corpuscular Volume 90 80-99 fL Mean Corpuscular Hemoglobin 31 25-34 pg Mean Corpuscular Hemoglobin Concent 35 32-36 g/dL Red Cell Distribution Width 12.6 10.0-14.5 % Platelet Count 156 130-400 10^3/uL Mean Platelet Volume 10.6 9.0-12.2 fL Immature Granulocyte % (Auto) 0 % Neutrophils (%) (Auto) 49 42-75 % Lymphocytes (%) (Auto) 37 12-44 % Monocytes (%) (Auto) 12 0-12 % Eosinophils (%) (Auto) 2 0-10 % Basophils (%) (Auto) 1 0-10 % Neutrophils # (Auto) 2.8 1.8-7.8 10^3/uL Lymphocytes # (Auto) 2.2 1.0-4.0 10^3/uL Monocytes # (Auto) 0.7 0.0-1.0 10^3/uL Eosinophils # (Auto) 0.1 0.0-0.3 10^3/uL Basophils # (Auto) 0.0 0.0-0.1 10^3/uL Immature Granulocyte # (Auto) 0.0 0.0-0.1 10^3/uL Prothrombin Time 14.3 12.2-14.7 SEC INR Comment 1.1 0.8-1.4 Activated Partial Thromboplast Time 36 H 24-35 SEC D-Dimer 0.47 0.00-0.49 UG/ML Sodium Level 141 135-145 MMOL/L Potassium Level 4.4 3.6-5.0 MMOL/L Chloride Level 108 H 98-107 MMOL/L Carbon Dioxide Level 25 21-32 MMOL/L Anion Gap 8 5-14 MMOL/L Blood Urea Nitrogen 15 7-18 MG/DL Creatinine 0.98 0.60-1.30 MG/DL Estimat Glomerular Filtration Rate 81 BUN/Creatinine Ratio 15 Glucose Level 111 H 70-105 MG/DL Mean Blood Glucose 103 <=126 mg/dL Hemoglobin A1c 5.2 4.0-5.6 % Calcium Level 9.3 8.5-10.1 MG/DL Corrected Calcium 9.1 8.5-10.1 MG/DL Total Bilirubin 1.7 H 0.1-1.0 MG/DL Aspartate Amino Transf (AST/SGOT) 20 5-34 U/L Alanine Aminotransferase (ALT/SGPT) 19 0-55 U/L Alkaline Phosphatase 57 40-136 U/L Troponin I < 0.028 <0.028 NG/ML Total Protein 7.0 6.4-8.2 GM/DL Albumin 4.2 3.2-4.5 GM/DL Glucometer 112 H 70-110 MG/DL Urine Color YELLOW Urine Clarity CLEAR Urine pH 7.0 5-9 Urine Specific Sullivan 1.015 L 1.016-1.022 Urine Protein NEGATIVE NEGATIVE Urine Glucose (UA) NEGATIVE NEGATIVE Urine Ketones NEGATIVE NEGATIVE Urine Nitrite NEGATIVE NEGATIVE Urine Bilirubin NEGATIVE NEGATIVE Urine Urobilinogen 4.0 < = 1.0 MG/DL Urine Leukocyte Esterase NEGATIVE NEGATIVE Urine RBC (Auto) NEGATIVE NEGATIVE Urine RBC NONE /HPF Urine WBC NONE /HPF Urine Crystals NONE /LPF Urine Bacteria NEGATIVE /HPF Urine Casts NONE /LPF Urine Mucus NEGATIVE /LPF Urine Culture Indicated NO Ammonia 26 11-32 UMOL/L Serum Alcohol < 10 <10 MG/DL My Orders Orders - ELIZABETH SIERRA MD Cbc With Automated Diff (05/09/23 09:15) Protime With Inr (05/09/23 09:15) Partial Thromboplastin Time (05/09/23 09:15) Comprehensive Metabolic Panel (05/09/23:15) Fibrin Degradation Products (05/09/23:15) Troponin I [place] (05/09/23 09:15) Ua Culture If Indicated (05/09/23:15) Chest 1 View, Ap/Pa Only (05/09/23:15) Ekg Tracing (05/09/23:15) Nothing By Mouth (05/09/23 Lunch) Accucheck Stat ONCE (05/09/23:15) Ed Iv/Invasive Line Start (05/09/23:15) Ed Iv/Invasive Line Start (05/09/23:15) Vital Signs Stroke Patient Q15M (05/09/23 09:15) Ct Head Wo-R/O Stroke (05/09/23 09:15) O2 (05/09/23:15) Monitor-Rhythm Ecg Trace Only (05/09/23:15) Dysphagia Screening Tool Q10MX1 (05/09/23 09:15) Lipid Panel (05/10/23 06:00) Ct Angio Head/Neck (05/09/23 09:51) Iohexol Injection (Omnipaque 350 Mg/Ml 1 (05/09/23 10:00) Received Contrast (Hold Metformin- Contr (05/09/23 10:00) Ns (Ivpb) 100 Ml (Sodium Chloride 0.9% 1 (05/09/23 10:00) Ed Admission (Communication) (05/09/23 12:54) Medications Given in ED Vital Signs/I&O 05/09/23 05/09/23 08:40 13:15 Temp 36.2 Pulse 60 59 Resp 16 14 B/P (MAP) 163/102 (122) 163/112 Pulse Ox 98 97 O2 Delivery Room Air Room Air Capillary Refill : Less Than 3 Seconds Blood Pressure Mean: 122 Progress Note : Time: 12:30 Progress Note Patient seen and evaluated by me. Evaluation today includes physical exam, "stroke protocol" to include CBC, Chem-12, serum troponin, EKG, coags, single view chest x-ray, CT brain stroke protocol and CT angio head and neck. Pertinent physical exam findings well-developed well-nourished male in no acute distress. He does seem confused and tries to confabulate with history taking. He does not recall answers to multiple questions and looks to his for answers. He cannot delineate the story of coming down the stairs in the home and whether or not he passed out and fell or fell down and then had symptoms. He has an NIH of "1" as he is not 100% oriented. No other focal motor or sarah rologic symptoms appreciated. Heart is regular, lungs are clear. No edema in his lower extremities. No point tenderness on hand overhand exam. He is hypertensive in the 160s over 110 range. The rest of his vitals are normal. Differential diagnosis based on history and physical exam, syncope, arrhythmia, TIA versus stroke Labs independently reviewed and interpreted by me. His CBC is normal. His Chem-12 is normal except for a mildly elevated bilirubin at 1.7. Troponin is negative. Coags generally within normal limits with a minimally elevated PTT at 36. His D-dimer is within normal limits. His EKG shows no ectopy or ST segment change. Chest x-ray reviewed and interpreted by me shows no infiltrates or effusions. CT head read by the radiologist as no acute process and CT angio head and neck shows mild to moderate plaquing in the carotid arteries bilaterally with no large vessel occlusions. Case is discussed with Dr. Watkins who is on for the hospitalist service. Recommended observation admission for with further evaluation and risk stratification. Discussed with the patient and his who is at the bedside. They are agreeable to the plan of care. Patient had no deterioration in his condition during his ED visit also did not have much improvement in his overall mentation. Will be admitted to the medical floor. ECG Initial ECG Impression Date: May 09, 2023 Initial ECG Impression Time: 09:23 Initial ECG Rate: 58 Initial ECG Rhythm: Normal Sinus Diagnostic Imaging Diagonstic Imaging: CT Comments [facility] [place], [place] NAME: GAILMARCIEEYAD [facility] REC#: [id number] PT STATUS: REG ER : 1950 PHYSICIAN: ELIZABETH SIERRA MD ADMIT DATE: 05/09/23/ER Signed Date of Exam:05/09/23 CT ANGIO HEAD/NECK PROCEDURE: CT angiography of the head and CT angiography of the neck with and without contrast. TECHNIQUE: Contiguous noncontrast images were obtained from the skull base through the vertex. After intravenous contrast administration, helical CT angiography of the neck was performed. Source data was reformatted into 3D MIP projections. Delayed post contrast acquisition was also obtained. Auto Exposure Controls were utilized during the CT exam to meet ALARA standards for radiation dose reduction. INDICATION: Headache, altered mental status, trauma COMPARISON: CT of the head on 05/09/2023. FINDINGS: 50% stenosis of the right proximal cervical ICA. Atherosclerosis within the proximal left cervical ICA with 25% stenosis. Bilateral intracranial ICAs are patent and normal in caliber. The bilateral MCAs and ACAs are patent and normal in caliber. The left vertebral artery is dominant. Basilar artery and bilateral ordnance truck installation supervisor are patent. Visualized aorta is normal in caliber. No neck mass or lymphadenopathy. The thyroid gland, parotid gland, and submandibular gland is normal. Multilevel degenerative changes of the cervical spine with mild to moderate multilevel spinal canal stenosis. Included lung apices demonstrate biapical scarring. IMPRESSION: Bilateral carotid atherosclerosis with 50% right and 25% left ICA stenosis. Patent bilateral vertebral arteries with dominant left vertebral artery. No large vessel occlusion. No aneurysm or arteriovenous malformation. Dictated by: Dictated on workstation # [id number] Dict: 05/09/23 1110 Trans: 05/09/23 1143 [facility] [id number] Interpreted by: MALATHI OSUNA DO Electronically signed by: MALATHI OSUNA DO 05/09/23 1143 Diagonstic Imaging: CT Comments [facility] [place] [place] NAME: EYAD GUERIN [facility] REC#: [id number] PT STATUS: REG ER : 1950 PHYSICIAN: ELIZABETH SIERRA MD ADMIT DATE: 05/09/23/ER Signed Date of Exam:05/09/23 CT HEAD WO-R/O STROKE PROCEDURE: CT head wo r/o stroke. TECHNIQUE: Multiple contiguous axial images were obtained through the brain without the use of intravenous contrast. Auto Exposure Controls were utilized during the CT exam to meet ALARA standards for radiation dose reduction. INDICATION: Confusion, syncope. COMPARISON: None. FINDINGS: No acute intracranial hemorrhage. The castro-white matter differentiation is preserved. Scattered hypoattenuation within the periventricular and subcortical white matter. Generalized prominence of ventricles and cortical sulci. No intracranial mass or fluid collection. No midline shift or mass effect. The subarachnoid spaces are maintained. The sella is normal. There are scattered calcifications of the intracranial vasculature. The skull is intact. The paranasal sinuses and mastoids are clear. IMPRESSION: No acute intracranial hemorrhage. No large vascular territory villanueva-white loss. No intracranial mass, midline shift, or hydrocephalus. Mild chronic small vessel ischemic disease. Mild global volume loss. Dictated by: Dictated on workstation # [id number] Dict: 05/09/23 0939 Trans: 05/09/23 0940 [facility] [place] [id number] Interpreted by: MALATHI OSUNA DO Electronically signed by: MALATHI OSUNA DO 05/09/23 0940 Diagonstic Imaging: Xray Plain Films/CT/US/NM/MRI: chest Comments [facility] [place] [place] NAME: EYAD GUERIN [facility] REC#: [id number] PT STATUS: REG ER : 1950 PHYSICIAN: ELIZABETH SIERRA MD ADMIT DATE: 05/09/23/ER Draft Date of Exam:05/09/23 CHEST 1 VIEW, AP/PA ONLY INDICATION: Strokelike symptoms, confusion COMPARISON: 02/09/2015 TECHNIQUE: Single radiograph of the chest dated 05/09/2023 FINDINGS: The cardiac silhouette is within normal limits in size. No significant pulmonary vascular congestion. Minimal linear interstitial opacities within the left lung base. The lungs otherwise appear clear. No pleural effusion. No pneumothorax. No acute osseous abnormality. IMPRESSION: Minimal left basilar scarring and/or atelectasis. Dictated on workstation # [id number] Dict: 05/09/23 1109 Trans: 05/09/23 1116 [facility] [id number] Interpreted by: KELLY MOONEY MD Electronically signed by: NIH Stroke Scale NIH : Select: Initial Level of Consciousness: 0=Alert Level of Consciousness-Questio: 1=Answers one question LOC Commands: 0=Performs both tasks Gaze: 0=Normal Visual Rubio: 0=No visual loss Facial Movement (Facial Paresi: 0=Normal symmetrical mnt Motor Function-Arms Right: 0=No drift Motor Function-Arms Left: 0=No drift Motor Function-Legs Right: 0=No drift Motor Function-Legs Left: 0=No drift Limb Ataxia: 0=Absent Sensory: 0=Normal:no loss Best Language: 0=No aphasia Dysarthria: 0=Normal Extinction & Inattention: 0=No abnormality NIH Stroke Scale Score: 1 Departure Communication (Admissions) Time/Spoke to Admitting Phy: 12:[address] Watkins (hospitalist) Impression Primary Impression: Fall down stairs Qualified Codes: W10.8XXA - Fall (on) (from) other stairs and steps, initial encounter Additional Impression: TIA (transient ischemic attack) Disposition: ADMITTED INPATIENT Condition: Stable Admissions Decision to Admit Reason: Admit from ER (General) Decision to Admit/Date: May 09, 2023 Time/Decision to Admit Time: 12:57 Departure-Patient Inst. Referrals: TIMMY DIAS MD (PCP/Family) Primary Care Physician ELIZABETH SIERRA MD May 09, 2023 09:03
[2023-05-09 09:21] LABS: BASOPHILS % (AUTO) 1 % (0-10); EOSINOPHILS # (AUTO) 0.1 10^3/uL (0.0-0.3); EOSINOPHILS % (AUTO) 2 % (0-10); HEMATOCRIT 45 % (40-54); HEMOGLOBIN 15.4 g/dL (13.3-17.7); LYMPHOCYTES # (AUTO) 2.2 10^3/uL (1.0-4.0); LYMPHOCYTES % (AUTO) 37 % (12-44); MEAN CORPUSCULAR HEMOGLOBIN 31 pg (25-34); MEAN CORPUSCULAR HGB CONC 35 g/dL (32-36); MEAN CORPUSCULAR VOLUME 90 fL (80-99); MEAN PLATELET VOLUME 10.6 fL (9.0-12.2); MONOCYTES # (AUTO) 0.7 10^3/uL (0.0-1.0); MONOCYTES % (AUTO) 12 % (0-12); NEUTROPHILS # (AUTO) 2.8 10^3/uL (1.8-7.8); NEUTROPHILS % (AUTO) 49 % (42-75); PLATELET COUNT 156 10^3/uL (130-400); WHITE BLOOD COUNT 5.9 10^3/uL (4.3-11.0)
[2023-05-09 09:23] LABS: ALBUMIN 4.2 GM/DL (3.2-4.5); CHLORIDE 108 MMOL/L (98-107); POTASSIUM 4.4 MMOL/L (3.6-5.0); SODIUM 141 MMOL/L (135-145)
[2023-05-09 09:24] LABS: CALCIUM 9.3 MG/DL (8.5-10.1)
[2023-05-09 09:25] LABS: GLUCOSE 111 MG/DL (70-105)
[2023-05-09 09:26] LABS: CARBON DIOXIDE 25 MMOL/L (21-32); INR 1.1 (0.8-1.4); PROTHROMBIN TIME PATIENT 14.3 SEC (12.2-14.7)
[2023-05-09 09:27] LABS: BILIRUBIN,TOTAL 1.7 MG/DL (0.1-1.0)
[2023-05-09 09:28] LABS: ALKALINE PHOSPHATASE 57 U/L (40-136)
[2023-05-09 09:29] LABS: CREATININE SERUM 0.98 MG/DL (0.60-1.30); GFR ESTIMATED 81
[2023-05-09 09:30] LABS: BUN/CREATININE RATIO 15
[2023-05-09 09:32] LABS: ALANINE AMINOTRANSFERASE 19 U/L (0-55)
[2023-05-09 09:39] LABS: FIBRIN DEGRADATION PRODUCTS 0.47 UG/ML (0.00-0.49)
--- NOTE | 2023-05-09 09:42 | Diagnostic Imaging Report ---
PROCEDURE: CT head wo r/o stroke. TECHNIQUE: Multiple contiguous axial images were obtained through the brain without the use of intravenous contrast. Auto Exposure Controls were utilized during the CT exam to meet ALARA standards for radiation dose reduction. INDICATION: Confusion, syncope. COMPARISON: None. FINDINGS: No acute intracranial hemorrhage. The castro-white matter differentiation is preserved. Scattered hypoattenuation within the periventricular and subcortical white matter. Generalized prominence of ventricles and cortical sulci. No intracranial mass or fluid collection. No midline shift or mass effect. The subarachnoid spaces are maintained. The sella is normal. There are scattered calcifications of the intracranial vasculature. The skull is intact. The paranasal sinuses and mastoids are clear. IMPRESSION: No acute intracranial hemorrhage. No large vascular territory villanueva-white loss. No intracranial mass, midline shift, or hydrocephalus. Mild chronic small vessel ischemic disease. Mild global volume loss. Dictated by: Dictated on workstation # [id number]
[2023-05-09] MEDS ORDERED: NS 100 ML (IVPB) BAG IV ONE (10:00)
[2023-05-09] MEDS ORDERED: IOHEXOL 350 MG/ML 100 ML (OMNIPAQUE 350) VIAL IV ONE (10:00)
[2023-05-09] MEDS ORDERED: HOLD METFORMIN - RECEIVED CONTRAST 20 ML VIAL IV SCH (10:00)
[2023-05-09 10:46] LABS: BACTERIA,URINE NEGATIVE /HPF; BILIRUBIN,URINE NEGATIVE (NEGATIVE); CLARITY,URINE CLEAR; COLOR,URINE YELLOW; GLUCOSE, URINE (UA) NEGATIVE (NEGATIVE); KETONES,URINE NEGATIVE (NEGATIVE); LEUKOCYTE ESTERASE ,URINE NEGATIVE (NEGATIVE); NITRITE,URINE NEGATIVE (NEGATIVE); PROTEIN,URINE NEGATIVE (NEGATIVE)
--- NOTE | 2023-05-09 11:16 | Diagnostic Imaging Report ---
INDICATION: Strokelike symptoms, confusion COMPARISON: 02/09/2015 TECHNIQUE: Single radiograph of the chest dated 05/09/2023 FINDINGS: The cardiac silhouette is within normal limits in size. No significant pulmonary vascular congestion. Minimal linear interstitial opacities within the left lung base. The lungs otherwise appear clear. No pleural effusion. No pneumothorax. No acute osseous abnormality. IMPRESSION: Minimal left basilar scarring and/or atelectasis. Dictated by: Dictated on workstation # [id number]
--- NOTE | 2023-05-09 11:45 | Diagnostic Imaging Report ---
PROCEDURE: CT angiography of the head and CT angiography of the neck with and without contrast. TECHNIQUE: Contiguous noncontrast images were obtained from the skull base through the vertex. After intravenous contrast administration, helical CT angiography of the neck was performed. Source data was reformatted into 3D MIP projections. Delayed post contrast acquisition was also obtained. Auto Exposure Controls were utilized during the CT exam to meet ALARA standards for radiation dose reduction. INDICATION: Headache, altered mental status, trauma COMPARISON: CT of the head on 05/09/2023. FINDINGS: 50% stenosis of the right proximal cervical ICA. Atherosclerosis within the proximal left cervical ICA with 25% stenosis. Bilateral intracranial ICAs are patent and normal in caliber. The bilateral MCAs and ACAs are patent and normal in caliber. The left vertebral artery is dominant. Basilar artery and bilateral clinical education consultant are patent. Visualized aorta is normal in caliber. No neck mass or lymphadenopathy. The thyroid gland, parotid gland, and submandibular gland is normal. Multilevel degenerative changes of the cervical spine with mild to moderate multilevel spinal canal stenosis. Included lung apices demonstrate biapical scarring. IMPRESSION: Bilateral carotid atherosclerosis with 50% right and 25% left ICA stenosis. Patent bilateral vertebral arteries with dominant left vertebral artery. No large vessel occlusion. No aneurysm or arteriovenous malformation. Dictated by: Dictated on workstation # [id number]
[2023-05-09 13:25] LABS: AMMONIA 26 UMOL/L (11-32)
[2023-05-09] MEDS ORDERED: ANTACID SUSPENSION 30 ML UDC PO PRN (13:45)
[2023-05-09] MEDS ORDERED: BISACODYL 10 MG SUPPOSITORY PR PRN (13:45)
[2023-05-09] MEDS ORDERED: LACTULOSE SYRUP 10GM/15ML 30ML UDC PO PRN (13:45)
[2023-05-09] MEDS ORDERED: MELATONIN 3 MG TABLET PO PRN (13:45)
[2023-05-09] MEDS ORDERED: ONDANSETRON INJECTION 4 MG/2 ML (SDV) IV PRN (13:45)
[2023-05-09] MEDS ORDERED: CALCIUM CARBONATE 500 MG CHEW TABLET PO PRN (13:45)
[2023-05-09] MEDS ORDERED: hydrALAZINE INJECTION 20 MG/ML VIAL IV PRN (13:45)
[2023-05-09] MEDS ORDERED: MILK OF MAGNESIA 400 MG/5 ML 30 ML UDC PO PRN (13:45)
[2023-05-09] MEDS ORDERED: ONDANSETRON 4 MG ORAL DISSOLVE TABLET PO PRN (13:45)
[2023-05-09] MEDS ORDERED: ACETAMINOPHEN 325 MG TABLET PO PRN (13:45)
[2023-05-09] MEDS ORDERED: polyethylene glycoL POWDER 17 GM (MIRALAX) PACK PO PRN (13:45)
[2023-05-09] MEDS ORDERED: amLODIPine 5 MG TABLET PO NR (14:00)
[2023-05-09] MEDS ORDERED: GADOTERATE 0.5 MMOL/ML (CLARISCAN) 20 ML VIAL IV ONE (14:00)
[2023-05-09] MEDS: ENOXAPARIN 40 MG/0.4 ML SYRINGE SC SCH (14:00)
--- NOTE | 2023-05-09 15:12 | Diagnostic Imaging Report ---
PROCEDURE: MR imaging of the brain with and without contrast. TECHNIQUE: Multiplanar, multisequence MR imaging of the brain was performed with and without contrast. INDICATION: Syncopal episode. Altered mental status. Concern for stroke. COMPARISON: 05/09/2023. FINDINGS: No acute ischemia, mass, or hemorrhage. No abnormal enhancement. Scattered T2 hyperintense signal is seen in the periventricular and subcortical white matter. The ventricles, cortical sulci, and basilar cisterns are symmetric and unremarkable. The sellar and suprasellar regions have a normal appearance. The brainstem and posterior fossa are unremarkable. The paranasal sinuses and mastoid air cells demonstrate normal signal characteristics. The globes and orbits are symmetric and unremarkable. The scalp and calvarium have a normal appearance. IMPRESSION: 1. No acute ischemia, mass, or hemorrhage. No abnormal enhancement. 2. Scattered chronic microvascular disease in the periventricular and subcortical white matter. Dictated by: Dictated on workstation # [id number]
[2023-05-09 15:25] VITALS: BP 121/68
[2023-05-09] MEDS ORDERED: ROSU10TA28 PO (15:43)
[2023-05-09] MEDS ORDERED: ASPI-1238 PO (15:43)
[2023-05-09 19:30] VITALS: BP 135/74
[2023-05-09] MEDS: ROSUVASTATIN 10 MG (CRESTOR) TABLET PO SCH (22:11)
[2023-05-09] MEDS: DOCUSATE SODIUM 100 MG CAPSULE PO SCH (22:11)
[2023-05-09] MEDS: SENNOSIDES 8.6 MG (SENOKOT) TAB PO SCH (22:11)
[2023-05-09 23:56] VITALS: BP 122/64
[2023-05-10 03:14] VITALS: BP 147/83
[2023-05-10 05:09] LABS: BASOPHILS # (AUTO) 0.1 10^3/uL (0.0-0.1); BASOPHILS % (AUTO) 1 % (0-10); EOSINOPHILS # (AUTO) 0.1 10^3/uL (0.0-0.3); EOSINOPHILS % (AUTO) 2 % (0-10); HEMATOCRIT 40 % (40-54); HEMOGLOBIN 13.9 g/dL (13.3-17.7); LYMPHOCYTES # (AUTO) 2.5 10^3/uL (1.0-4.0); LYMPHOCYTES % (AUTO) 40 % (12-44); MEAN CORPUSCULAR HEMOGLOBIN 31 pg (25-34); MEAN CORPUSCULAR HGB CONC 35 g/dL (32-36); MEAN CORPUSCULAR VOLUME 90 fL (80-99); MEAN PLATELET VOLUME 10.8 fL (9.0-12.2); MONOCYTES # (AUTO) 0.7 10^3/uL (0.0-1.0); MONOCYTES % (AUTO) 10 % (0-12); NEUTROPHILS % (AUTO) 47 % (42-75); PLATELET COUNT 169 10^3/uL (130-400); WHITE BLOOD COUNT 6.3 10^3/uL (4.3-11.0)
[2023-05-10 05:37] LABS: CALCIUM 8.8 MG/DL (8.5-10.1); CREATININE SERUM 0.91 MG/DL (0.60-1.30); POTASSIUM 4.7 MMOL/L (3.6-5.0)
[2023-05-10 08:00] VITALS: BP 132/75
[2023-05-10] MEDS ORDERED: amLODIPine 5 MG TABLET PO SCH (09:00)
[2023-05-10] MEDS: ASPIRIN enteric coated 81MG TABLET PO SCH (09:10)
[2023-05-10] MEDS: SENNOSIDES 8.6 MG (SENOKOT) TAB PO SCH ×2 (09:11→20:31)
[2023-05-10] MEDS: DOCUSATE SODIUM 100 MG CAPSULE PO SCH ×2 (09:11→20:31)
--- NOTE | 2023-05-10 09:20 | Physical Therapy Evaluation ---
PT Evaluation-General Medical Diagnosis Admission Date May 09, 2023 at 13:25 Medical Diagnosis: fall down stairs/TIA Onset Date: May 09, 2023 Therapy Diagnosis Therapy Diagnosis: debility Height/Weight Height (Feet): 6 Height (Inches): 4.00 Weight (Pounds): 262 Weight (Ounces): 0 Precautions Precautions/Isolations: Standard Precautions Referral Physician: June Reason for Referral: Evaluation/Treatment Medical History Pertinent Medical History: HTN Current History EMS secondary to fall down stairs due to possible syncopal episode Reviewed History: Yes Social History Home: Multilevel Current Living Status: Spouse Entry Into Home: Stairs With Railing PT Steps Inside Home: 7 Prior Prior Level of Function SCALE: Activities may be completed with or without assistive devices. 4-Fpoimglotm-jtjeosl completes the activity by him/herself with no assistance from a helper. 5-Set-up or Clean-up Assistance-helper sets up or cleans up; patient completes activity. [place] assists only prior to or following the activity. 4-Supervision or Touching Assistance-helper provides verbal cues and/or touching/steadying and/or contact guard assistance as patient completes activity. Assistance may be provided throughout the activity or intermittently. 3-Partial/Moderate Assistance-helper does LESS THAN HALF the effort. [place] lifts, holds or supports trunk or limbs, but provides less than half the effort. 2-Substantial/Maximal Assistance-helper does MORE THAN HALF the effort. [place] lifts or holds trunk or limbs and provides more than half the effort. 4-Havjtvjrr-xemwzz does ALL the effort. Patient does none of the effort to com plete the activity. Or, the assistance of 2 or more helpers is required for the patient to complete the activity. If activity was not attempted, code reason: 7-Patient Refused. 9-Not Applicable-not attempted and the patient did not perform the activity before the current illness, exacerbation or injury. 10-Not Attempted due to Environmental Limitations-(lack of equipment, weather restraints, etc.). 88-Not Attempted due to Medical Conditions or Safety Concerns. Bed Mobility: 6 Transfers (B,C,W/C): 6 Gait: 6 Stairs: 6 Indoor Mobility (Ambulation): Independent Stairs: Independent Prior Devices Use: None PT Evaluation-Current Subjective Patient agrees to PT. He reports he was going down the stairs at home and he started to black out and sat down on the stairs. Denies fall ROM/Strength ROM Lower Extremities bilateral LE WFL Strength Lower Extremities 5/5 grossly bilateral LE all planes Integumentary/Posture Bowel Incontinence: No Bladder Incontinence: No Neuromuscular (Tone, Coordination, Reflexes) grossly intact Sensory Vision: Wears Glasses Hearing: Functional Transfers Sit to Lying (QC): 6 Lying to Sitting/Side of Bed(Q: 6 Sit to Stand (QC): 6 Gait Mode of Locomotion: Walk Anticipated Mode of Locomotion: Walk Walk 10 feet (QC): 6 Walk 50 ft with 2 Turns(QC): 6 Walk 150 ft (QC): 6 Distance: 175' x 2 Gait Assistive Device: None Comments/Gait Description safe and functional with no deviation Balance Sitting Static: Normal Sitting Dynamic: Normal Standing Static: Normal Standing Dynamic: Normal Treatment Patient had an episode of "dizziness" during ambulation required seated recovery period. BP taken in sit and then in stand and during ambulation, multiple time, with significant decrease in BP. (refer to nursing notes for BP details.) Assessment/Needs Patient is currently independent with all gross motor skills and does not require skilled PT intervention. Patient does have significant orthostatic hypotension but does not require skilled PT. Rehab Potential: Fair PT Plan Treatment/Plan Treatment Plan: Discontinue PT, goals met Treatment Duration: May 10, 2023 Frequency: 1 time per week Estimated Hrs Per Day: .25 hour per day Patient and/or Family Agrees t: Yes Time Time In: 835 Time Out: 847 DATE: May 10, 2023 Total Billed Treatment Time: 12 Total Billed Treatment 1 visit [facility] 12 min STIVEN MUKHERJEE PT May 10, 2023 09:20
[2023-05-10] MEDS ORDERED: NS IV 1000 ML 1,000 ML IV SCH (10:00)
--- NOTE | 2023-05-10 11:08 | Occ Therapy Progress Note ---
Therapy Progress Note OT order received, OT observed patient in room spoke w/ patent and spouse, nursing staff and PT, Patient is independent in room and no need for OT indicated NEEMA MILLER OT May 10, 2023 11:08
[2023-05-10 12:00] VITALS: BP 159/66
[2023-05-10] MEDS ORDERED: NS IV 1000 ML 1,000 ML IV ONE (13:15)
[2023-05-10] MEDS: ENOXAPARIN 40 MG/0.4 ML SYRINGE SC SCH (14:33)
[2023-05-10] MEDS: NS IV 1000 ML 1,000 ML IV SCH ×2 (15:55→23:52)
[2023-05-10 16:00] VITALS: BP 174/78
[2023-05-10 20:27] VITALS: BP 141/88
[2023-05-10] MEDS: ROSUVASTATIN 10 MG (CRESTOR) TABLET PO SCH (20:31)
--- NOTE | 2023-05-10 20:31 | History & Physical-Hospitalist ---
History of Present Illness HPI/Chief Complaint Joseph Zapien is a 72 year old male with PMH HTN, HLD, who presented after a fall down stairs. He was at home and fell down seven stairs. They live in a split level home. He reports feeling lightheaded and dizzy. He has had issues with this at home. He has had a couple falls in recent weeks. He denies any pain at this time. He has otherwise been in his normal state of health. He denies fevers and chills. He denies chest pain and shortness of breath. He denies nausea and vomiting. He denies abdominal pain. He has been able to eat and drink. 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 He also reports that he has some valuables at home that [place] Source[place] patient Exam Limitations: no limitations Date Seen 05/10/23 Time Seen by a Provider: 09:45 Attending Physician Alphonse Alicia MD PCP Admitting Physician: Katie Wilhelm MD Attending Physician: Katie Wilhelm MD Referring Physician Date of Admission May 09, 2023 at 13:25 Home Medications & Allergies Home Medications Reviewed patient Home Medication Reconciliation performed by pharmacy medication reconciliations avionics technician and/or nursing. Patients Allergies have been reviewed. Allergies Allergies Coded Allergies No Known Drug Allergies (Unverified05/09/23) Past Vmdhhlz-Jdeisj-Rxjalo Hx Patient Social History Tobacco Use?: No Smoking Status: Never a Smoker Use of E-Cig and/or Vaping dev: No Substance use?: No Alcohol Use?: Yes Additional Alcohol Comments: STATES HE USED TO DRINK HEAVILY AND QUIT IN OCTOBER Pt feels they are or have been: No Immunizations Up To Date Date of Influenza Vaccine: Jun 23, 2016 Seasonal Allergies Seasonal Allergies: Yes Current Status Advance Directives: No Communicates: Verbally Primary Language: Rwandan Preferred Spoken Language: Rwandan Is interpretation needed?: No Sensory deficits: Vision impairment Implanted or Applied Medical D: None Past Medical History Surgeries: Adenoidectomy, Tonsillectomy Asthma Hypertension Sexually Transmitted Disease: No HIV/AIDS: No Fractures Blood Disorders: No Family Medical History Heart Disease, COPD Review of Systems Constitutional: dizziness Respiratory: no symptoms reported Cardiovascular: no symptoms reported Gastrointestinal: no symptoms reported Physical Exam Physical Exam Vital Signs Vital Signs - First Documented 05/09/23 08:40 Temp 36.2 Pulse 60 Resp 16 B/P (MAP) 163/102 (122) Pulse Ox 98 O2 Delivery Room Air Capillary Refill : Less Than 3 Seconds Height, Weight, BMI Height: 6'4.00" Weight: 262lbs. 0oz. [id number]; 28.45 BMI Method:Stated General Appearance: No Apparent Distress, WD/WN HEENT: PERRL/EOMI, Pharynx Normal Neck: Normal Inspection, Supple Respiratory: Lungs Clear, No Respiratory Distress Cardiovascular: Regular Rate, Rhythm, No Murmur Gastrointestinal: Normal Bowel Sounds, Soft Extremity: Normal Inspection, No Pedal Edema Neurologic/Psychiatric: Alert, Normal Mood/Affect Skin: Normal Color, Warm/Dry Results Results/Procedures Labs Laboratory Tests 05/09/23 08:40 05/10/23 05:00 Patient resulted labs reviewed. Imaging: Reviewed Imaging Report Assessment/Plan Admission Diagnosis Fall down stairs Admission Status: Observation Assessment and Plan Fall down stairs Orthostatic hypotension HTN HLD No acute fractures identified CT Head and MRI negative for stroke or other intracranial abnormalities IV fluids PT/OT Hold antihypertensives Diagnosis/Problems Diagnosis/Problems (1) Fall down stairs Status: Acute Qualifiers: Encounter type: initial encounter Qualified Codes: W10.8XXA - Fall (on) (from) other stairs and steps, initial encounter (2) Orthostatic hypotension Status: Acute (3) HTN (hypertension) Status: Chronic (4) HLD (hyperlipidemia) Status: Chronic KATIE WILHELM MD May 10, 2023 20:31
[2023-05-10 23:38] VITALS: BP 154/79
[2023-05-11] MEDS ORDERED: HALOPERIDOL INJECTION 5 MG/ML VIAL IV PRN (00:30)
[2023-05-11] MEDS ORDERED: HALOPERIDOL INJECTION 5 MG/ML VIAL ONE (00:38)
[2023-05-11 03:32] VITALS: BP 142/98
[2023-05-11 05:11] LABS: BASOPHILS # (AUTO) 0.1 10^3/uL (0.0-0.1); BASOPHILS % (AUTO) 1 % (0-10); EOSINOPHILS # (AUTO) 0.1 10^3/uL (0.0-0.3); EOSINOPHILS % (AUTO) 2 % (0-10); HEMATOCRIT 41 % (40-54); HEMOGLOBIN 14.3 g/dL (13.3-17.7); LYMPHOCYTES # (AUTO) 2.3 10^3/uL (1.0-4.0); LYMPHOCYTES % (AUTO) 38 % (12-44); MEAN CORPUSCULAR HEMOGLOBIN 31 pg (25-34); MEAN CORPUSCULAR HGB CONC 35 g/dL (32-36); MEAN CORPUSCULAR VOLUME 89 fL (80-99); MEAN PLATELET VOLUME 10.7 fL (9.0-12.2); MONOCYTES # (AUTO) 0.6 10^3/uL (0.0-1.0); MONOCYTES % (AUTO) 9 % (0-12); NEUTROPHILS # (AUTO) 3.1 10^3/uL (1.8-7.8); NEUTROPHILS % (AUTO) 50 % (42-75); PLATELET COUNT 162 10^3/uL (130-400); WHITE BLOOD COUNT 6.1 10^3/uL (4.3-11.0)
[2023-05-11 05:34] LABS: CALCIUM 8.8 MG/DL (8.5-10.1); CREATININE SERUM 0.79 MG/DL (0.60-1.30); POTASSIUM 4.3 MMOL/L (3.6-5.0)
[2023-05-11 08:00] VITALS: BP 144/72
[2023-05-11] MEDS: NS IV 1000 ML 1,000 ML IV SCH (08:31)
[2023-05-11] MEDS: SENNOSIDES 8.6 MG (SENOKOT) TAB PO SCH (08:32)
[2023-05-11] MEDS: DOCUSATE SODIUM 100 MG CAPSULE PO SCH (08:32)
[2023-05-11] MEDS: ASPIRIN enteric coated 81MG TABLET PO SCH (10:53)
[2023-05-11 11:57] VITALS: BP 177/96
[2023-05-11 14:02] VITALS: BP 177/96
--- NOTE | 2023-05-11 15:43 | Discharge Summary ---
Discharge Summary Hospital Course Problems/Dx: (1) Fall down stairs Status: Acute Qualifiers: Qualified Codes: W10.8XXA - Fall (on) (from) other stairs and steps, initial encounter (2) Orthostatic hypotension Status: Acute (3) HTN (hypertension) Status: Chronic (4) HLD (hyperlipidemia) Status: Chronic (5) Confusion Status: Acute (6) Parkinsonian features Status: Acute (7) Labile blood pressure Status: Acute Hospital Course Date of Admission: May 09, 2023 at 13:25 Admission Diagnosis : Fall down stairs Family Physician/Provider: Alphonse Dias MD Date of Discharge: 05/11/23 Discharge Diagnosis: Fall down stairs, orthostatic hypotension, confusion, Parkinsonian features, labile BP Hospital Course: Joseph Hutchins is a 72 year old male with PMH HTN, HLD, who was admitted after a fall down stairs at home. He reports having a few falls recently. He has been lightheaded and dizzy. He was found to be severely orthostatic. His symptoms improved with IV fluid resuscitation, but his hypotension persisted. He had issues with confusion overnight which was concerning for . His reports that he has had some issues with confusion at home but she had thought it was due to "normal aging". In the setting of his fall, orthostasis, and confusion, I discussed my concern for possible Parkinson's disease. He does not have a tremor. He did not exhibit a festenating gait, but his reports she had noticed this at home sometimes. We discussed the need to be screened for dementia and to follow up with Neurology for further evaluation of possible Parkinson's or Parkinson's like disease. Due to his profound orthostatic hypotension, his Lisinopril was held. He was discharged home in fair condition. He was encouraged to use a cane for extra support. Labs and Pending Lab Test: Laboratory Tests 05/11/23 04:54: White Blood Count 6.1, Red Blood Count 4.63, Hemoglobin 14.3, Hematocrit 41, Mean Corpuscular Volume 89, Mean Corpuscular Hemoglobin 31, Mean Corpuscular Hemoglobin Concent 35, Red Cell Distribution Width 12.6, Platelet Count 162, Mean Platelet Volume 10.7, Immature Granulocyte % (Auto) 0, Neutrophils (%) (Auto) 50, Lymphocytes (%) (Auto) 38, Monocytes (%) (Auto) 9, Eosinophils (%) (Auto) 2, Basophils (%) (Auto) 1, Neutrophils # (Auto) 3.1, Lymphocytes # (Auto) 2.3, Monocytes # (Auto) 0.6, Eosinophils # (Auto) 0.1, Basophils # (Auto) 0.1, Immature Granulocyte # (Auto) 0.0, Sodium Level 140, Potassium Level 4.3, Chloride Level 112H, Carbon Dioxide Level 21, Anion Gap 7, Blood Urea Nitrogen 10, Creatinine 0.79, Estimat Glomerular Filtration Rate 93, BUN/Creatinine Ratio 13, Glucose Level 103, Calcium Level 8.8 Home Meds Active Reported Aspirin EC (Aspirin) 81 Mg Tablet.dr 81 Mg PO DAILY Rosuvastatin Calcium 10 Mg Tablet 10 Mg PO HS Assessment/Pt Instructions See instructions Discharge Planning: >30 minutes discharge planning Discharge Instructions Discharge Diet: Low Sodium Diet Activity as Tolerated: Yes Discharge Physical Examination Vital Signs Vital Signs Date Time Temp Pulse Resp B/P (MAP) Pulse Ox O2 Delivery O2 Flow Rate FiO2 05/11/23 14:02 36.7 57 18 177/96 97 Room Air General Appearance: No Apparent Distress, WD/WN Respiratory: Lungs Clear, No Respiratory Distress Cardiovascular: Regular Rate, Rhythm, No Murmur Gastrointestinal: Normal Bowel Sounds, Soft Extremity: Normal Inspection, No Pedal Edema Skin: Normal Color, Warm/Dry Neurologic/Psychiatric: Alert, Normal Mood/Affect Allergies: Coded Allergies: No Known Drug Allergies (Unverified , 05/09/23) Copy Copies To 1: ALPHONSE DIAS MD Discharge Summary Date of Admission May 09, 2023 at 13:25 Date of Discharge May 11, 2023 at 13:50 Discharge Date: May 11, 2023 Discharge Time: 13:50 Admission Diagnosis Fall down stairs Discharge Diagnosis Fall down stairs Orthostatic hypotension HTN HLD Confusion (1) Fall down stairs Status: Acute Qualifiers: Qualified Codes: W10.8XXA - Fall (on) (from) other stairs and steps, initial encounter (2) Orthostatic hypotension Status: Acute (3) HTN (hypertension) Status: Chronic (4) HLD (hyperlipidemia) Status: Chronic (5) Confusion Status: Acute (6) Parkinsonian features Status: Acute (7) Labile blood pressure Status: Acute ENA WILHELM MD May 11, 2023 15:41
== END 2023-05-11 11:33 | disposition home or self-care (01) ==
LOC: EDUNIT# 08:34 → ER 08:35 → 4TH 13:24 → UNDOADMOB 13:25 → 4TH 13:25 → UNDODISOB 05-11 11:33
PROVIDERS: ADMIT Internal Medicine; ATTEND Internal Medicine
DX: I95.1 Orthostatic hypotension (principal); I10 Essential (primary) hypertension; E78.5 Hyperlipidemia, unspecified; R41.0 Disorientation, unspecified; G20 Parkinson's disease; G45.9 Transient cerebral ischemic attack, unspecified; R29.701 NIHSS score 1; W10.8XXA Fall (on) (from) other stairs and steps, initial encounter
CPT/HCPCS: 70450; 70496; 70498; 70553; 71045; 80048 ×2; 80053; 80061; 81000; 82140; 82947; 83036; 84484; 85025 ×3; 85379; 85610; 85730; 93005; 93041; 96361; 96372; 97162; 99284; C8929; G0378; G0480; 36415; 80320; 93306

== ENCOUNTER 2023-05-13 11:12 | Observation (INO) | payer MEDICARE ==
[~2023-05-13] VITALS: Ht 193 cm; Wt 110.0 kg
[~2023-05-13 11:12] MED LIST changes: +ASPI-1238 PO; +ROSU10TA28 PO
[2023-05-13] MEDS ORDERED: NS IV 500 ML 500 ML IV ONE (11:15)
[2023-05-13 11:21] LABS: BASOPHILS % (AUTO) 0 % (0-10); EOSINOPHILS # (AUTO) 0.1 10^3/uL (0.0-0.3); EOSINOPHILS % (AUTO) 2 % (0-10); HEMATOCRIT 46 % (40-54); LYMPHOCYTES # (AUTO) 2.3 10^3/uL (1.0-4.0); LYMPHOCYTES % (AUTO) 34 % (12-44); MEAN CORPUSCULAR HEMOGLOBIN 31 pg (25-34); MEAN CORPUSCULAR HGB CONC 35 g/dL (32-36); MEAN CORPUSCULAR VOLUME 89 fL (80-99); MEAN PLATELET VOLUME 10.4 fL (9.0-12.2); MONOCYTES # (AUTO) 0.5 10^3/uL (0.0-1.0); MONOCYTES % (AUTO) 8 % (0-12); NEUTROPHILS # (AUTO) 3.9 10^3/uL (1.8-7.8); NEUTROPHILS % (AUTO) 57 % (42-75); PLATELET COUNT 188 10^3/uL (130-400); WHITE BLOOD COUNT 6.8 10^3/uL (4.3-11.0)
[2023-05-13 11:32] LABS: ALBUMIN 4.3 GM/DL (3.2-4.5); CHLORIDE 107 MMOL/L (98-107); POTASSIUM 4.1 MMOL/L (3.6-5.0); SODIUM 141 MMOL/L (135-145)
--- NOTE | 2023-05-13 11:33 | ED General ---
General Chief Complaint: Dizziness/Syncope Stated Complaint: DIZZINESS Nursing Triage Note: ARRIVED VIA EMS FROM HOME WITH COMPLAINTS OF DIZZINESS ET HYPOTENSION. PT WAS SEEN HERE LAST WEEK. Source of Information: Patient Exam Limitations: No Limitations History of Present Illness Date Seen by Provider: May 13, 2023 Time Seen by Provider: 11:12 Initial Comments Here with report of weakness and dizziness at home. Apparently was in the hospital last week for similar episode and fall and had work-up at that point including MRI. MRI results showed no mass or lesion with some chronic disease. Review of discharge summary from Dr. Watkins revealed concerns for possible Parkinson's versus dementia with continued outpatient treatment. Patient reports that since going home last week he is done okay and has been practicing getting up slowly and moving slowly to prevent dizziness and that has worked. Woke up this morning and his was assisting him downstairs when he became quite dizzy. He did not fall. Ultimately EMS was called and arrived at his place and brought him here. They noted that he was slightly hypotensive initially in the 80s systolic which did improve to 90s and low 100s by the time he arrived here. He has normal systolic now with blood pressure 120s systolic on initial evaluation here. Patient states he is feeling better. He reports eating and drinking okay and taking his medicines as directed. They did decrease his blood pressure medicines. Timing/Duration: 1 Hour Severity: Mild, Moderate Associated Systoms: No Chest Pain, No Cough, No Fever/Chills, No Nausea/Vomiting Allergies and Home Medications Allergies Coded Allergies: No Known Drug Allergies (Unverified , 05/13/23) Patient Home Medication List Home Medication List Reviewed: Yes Aspirin (Aspirin EC) 81 Mg Tablet.dr 81 MG PO DAILY, (Reported) Entered as Reported by: ÁNGEL FLORES on 05/09/23 1543 Rosuvastatin Calcium (Rosuvastatin Calcium) 10 Mg Tablet, 10 MG PO HS, (Reported) Entered as Reported by: ÁNGEL FLORES on 05/09/23 154 Discontinued Medications Cyclosporine (Restasis) 1 Each Droperette, 1 EACH OP DAILY, (Reported) Discontinued Reason: No Longer Taking Entered as Reported by: GINA NUNEZ on 01/25/17 1238 Review of Systems Review of Systems Constitutional: see HPI; No chills, No fever EENTM: no symptoms reported Respiratory: No cough Cardiovascular: No chest pain, No edema; other Gastrointestinal: No nausea, No vomiting Genitourinary: no symptoms reported Musculoskeletal: no symptoms reported Skin: no symptoms reported Psychiatric/Neurological: See HPI; Denies Numbness; Weakness All Other Systems Reviewed Negative Unless Noted: Yes Past Eohrooz-Zbwpza-Mrnqcz Hx Patient Social History Tobacco Use?: No Substance use?: No Alcohol Use?: Yes Alcohol Frequency: Once in a while Immunizations Up To Date Tetanus Booster (TDap): More than 5yrs Seasonal Allergies Seasonal Allergies: Yes Past Medical History Surgeries: Yes (Dental) Adenoidectomy, Tonsillectomy Respiratory: No Asthma Cardiac: Yes Hypertension Neurological: No Reproductive Disorders: No Sexually Transmitted Disease: No HIV/AIDS: No Gastrointestinal: Yes Musculoskeletal: Yes (LEFT ARM AT 5 YRS, CLAVICLE IN HS) Fractures Endocrine: No Cancer: No Psychosocial: No Integumentary: No Blood Disorders: No Family Medical History Reviewed Nursing Family Hx Heart Disease, COPD Physical Exam Vital Signs Vital Signs - First Documented 05/13/23 11:13 Temp 35.7 Pulse 67 Resp 16 B/P (MAP) 123/77 (92) Pulse Ox 97 O2 Delivery Room Air Capillary Refill : Less Than 3 Seconds Height, Weight, BMI Height: 6'4.00" Weight: 262lbs. 0oz. [id number]; 29.00 BMI Method:Stated General Appearance: No Apparent Distress, WD/WN HEENT: PERRL/EOMI, Pharynx Normal Neck: Non Tender, Supple Respiratory: Lungs Clear, Normal Breath Sounds Cardiovascular: Regular Rate, Rhythm, No Murmur Gastrointestinal: Non Tender, Soft Back: Normal Inspection, No CVA Tenderness, No Vertebral Tenderness Extremity: Normal Range of Motion, Non Tender Neurologic/Psychiatric: Alert, Other (Confused about place but otherwise knows person and time) Skin: Normal Color, Warm/Dry Progress/Results/Core Measures Suspected Sepsis SIRS Temperature: Pulse: 67 Respiratory Rate: 16 Laboratory Tests 05/13/23 11:10: White Blood Count 6.8 Blood Pressure 123 /77 Mean: 92 Laboratory Tests 05/13/23 11:10: Creatinine 0.97, Platelet Count 188, Total Bilirubin 1.7H Results/Orders Lab Results Laboratory Tests Test 05/13/23 11:10 05/13/23 15:37 Range/Units White Blood Count 6.8 4.3-11.0 10^3/uL Red Blood Count 5.18 4.30-5.52 10^6/uL Hemoglobin 16.0 13.3-17.7 g/dL Hematocrit 46 40-54 % Mean Corpuscular Volume 89 80-99 fL Mean Corpuscular Hemoglobin 31 25-34 pg Mean Corpuscular Hemoglobin Concent 35 32-36 g/dL Red Cell Distribution Width 12.5 10.0-14.5 % Platelet Count 188 130-400 10^3/uL Mean Platelet Volume 10.4 9.0-12.2 fL Immature Granulocyte % (Auto) 0 % Neutrophils (%) (Auto) 57 42-75 % Lymphocytes (%) (Auto) 34 12-44 % Monocytes (%) (Auto) 8 0-12 % Eosinophils (%) (Auto) 2 0-10 % Basophils (%) (Auto) 0 0-10 % Neutrophils # (Auto) 3.9 1.8-7.8 10^3/uL Lymphocytes # (Auto) 2.3 1.0-4.0 10^3/uL Monocytes # (Auto) 0.5 0.0-1.0 10^3/uL Eosinophils # (Auto) 0.1 0.0-0.3 10^3/uL Basophils # (Auto) 0.0 0.0-0.1 10^3/uL Immature Granulocyte # (Auto) 0.0 0.0-0.1 10^3/uL Sodium Level 141 135-145 MMOL/L Potassium Level 4.1 3.6-5.0 MMOL/L Chloride Level 107 98-107 MMOL/L Carbon Dioxide Level 24 21-32 MMOL/L Anion Gap 10 5-14 MMOL/L Blood Urea Nitrogen 12 7-18 MG/DL Creatinine 0.97 0.60-1.30 MG/DL Estimat Glomerular Filtration Rate 82 BUN/Creatinine Ratio 12 Glucose Level 116 H 70-105 MG/DL Calcium Level 9.4 8.5-10.1 MG/DL Corrected Calcium 9.2 8.5-10.1 MG/DL Magnesium Level 2.0 1.6-2.4 MG/DL Total Bilirubin 1.7 H 0.1-1.0 MG/DL Aspartate Amino Transf (AST/SGOT) 20 5-34 U/L Alanine Aminotransferase (ALT/SGPT) 20 0-55 U/L Alkaline Phosphatase 56 40-136 U/L Troponin I < 0.028 <0.028 NG/ML C-Reactive Protein High Sensitivity 0.04 0.00-0.50 MG/DL Total Protein 6.9 6.4-8.2 GM/DL Albumin 4.3 3.2-4.5 GM/DL TSH [place] Testing 3.04 0.35-4.94 UIU/ML Urine Color YELLOW Urine Clarity CLEAR Urine pH 6.0 5-9 Urine Specific [place] 1.020 1.016-1.022 Urine Protein 2+ H NEGATIVE Urine Glucose (UA) NEGATIVE NEGATIVE Urine Ketones TRACE H NEGATIVE Urine Nitrite NEGATIVE NEGATIVE Urine Bilirubin 2+ H NEGATIVE Urine Urobilinogen 4.0 < = 1.0 MG/DL Urine Leukocyte Esterase NEGATIVE NEGATIVE Urine RBC (Auto) NEGATIVE NEGATIVE Urine RBC NONE /HPF Urine WBC RARE /HPF Urine Squamous Epithelial Cells RARE /HPF Urine Crystals PRESENT H /LPF Urine Calcium Oxalate Crystals RARE H /LPF Urine Amorphous Sediment MOD SEAN URATES H /LPF Urine Bacteria TRACE /HPF Urine Casts PRESENT /LPF Urine Hyaline Casts 10-25 H /LPF Urine Mucus LARGE H /LPF Urine Culture Indicated NO My Orders Orders - JOYCE JONES MD Cbc With Automated Diff (05/13/23 11:15) Comprehensive Metabolic Panel (05/13/23 11:15) Hs C Reactive Protein (05/13/23 11:15) Magnesium (05/13/23 11:15) Troponin I Ofe (05/13/23 11:15) Ua Culture If Indicated (05/13/23 11:15) Ed Iv/Invasive Line Start (05/13/23 11:15) Ns Iv 500 Ml (Sodium Chloride 0.9%) (05/13/23 11:15) Ekg Tracing (05/13/23 11:15) Monitor-Rhythm Ecg Trace Only (05/13/23 11:15) Thyroid Analyzer (05/13/23 11:19) Ns Iv 500 Ml (Sodium Chloride 0.9%) (05/13/23 13:30) Ns Iv 1000 Ml (Sodium Chloride 0.9%) (05/13/23 14:42) Aspirin Chewable Tablet (Aspirin Chewabl (05/13/23 16:15) Medications Given in ED Vital Signs/I&O 805/13/23 05/13/23 11:13 13:25 15:54 Temp 35.7 Pulse 67 59 55 70 64 80 63 Resp 16 B/P (MAP) 123/77 (92) 144/84 (104) 159/85 (109) 109/70 (83) 131/83 (99) 80/52 (61) 77/58 (64) Pulse Ox 97 O2 Delivery Room Air 05/13/23 23:59 Intake Total 1500 ml Balance 1500 ml Capillary Refill : Less Than 3 Seconds Blood Pressure Mean: 92 Progress Note : Progress Note Seen and evaluated. IV, labs, EKG and normal saline 500 mL bolus ordered. We will get CBC, CMP, troponin and thyroid studies. I did review hospitalization from last week including discharge summary as noted in HPI. Monitor patient. Differential diagnosis includes cardiac event, orthostatic hypotension, dehydration, electrolyte abnormality 1300: CBC reviewed and is grossly normal. CMP reviewed and is grossly normal with exceptions of slightly elevated total bilirubin. This appears to be chronic and stable. We are pending UA. Overall is doing better. Blood pressure remains and normal range. at bedside. Monitor patient. 1558: We have continue to monitor patient throughout stay and have continued IV fluids. UA shows concentration but no obvious infection. Patient remains orthostatic despite 1.5 L of fluid given over the last few hours. Blood pressure drops into the 70s systolic when standing. Given this, we will need to continue gentle hydration but admission is indicated. I did discuss the case with Dr. Ramesh and she accepts patient for admission, observation status and I will write bridge orders. Patient family agree with plan. is asking about additional resources at home and I will put in a social work consult. There supposed to see neurology at some point in the future due to possible Parkinson versus keeley ntia noted on last admission and she is hoping for some help until they can see neurology. ECG Initial ECG Impression Date: May 13, 2023 Initial ECG Impression Time: 11:23 Initial ECG Rate: 63 Initial ECG Rhythm: Normal Sinus Comment This rhythm with normal axis. No evidence of ST elevation [place]. Interpreted by me. Departure Communication (Admissions) Time/Spoke to Admitting Phy: 15:58 Impression Primary Impression: Orthostatic hypotension Disposition: ADMITTED INPATIENT Condition: Stable Admissions Decision to Admit Reason: Admit from ER (General) Decision to Admit/Date: May 13, 2023 Time/Decision to Admit Time: 15:58 Departure-Patient Inst. Referrals: TIMMY DIAS MD (PCP/Family) Primary Care Physician JOYCE JONES MD May 13, 2023 11:33
[2023-05-13 11:34] LABS: CALCIUM 9.4 MG/DL (8.5-10.1)
[2023-05-13 11:35] LABS: GLUCOSE 116 MG/DL (70-105); TOTAL PROTEIN 6.9 GM/DL (6.4-8.2)
[2023-05-13 11:36] LABS: CARBON DIOXIDE 24 MMOL/L (21-32)
[2023-05-13 11:37] LABS: BILIRUBIN,TOTAL 1.7 MG/DL (0.1-1.0)
[2023-05-13 11:38] LABS: ALKALINE PHOSPHATASE 56 U/L (40-136)
[2023-05-13 11:39] LABS: CREATININE SERUM 0.97 MG/DL (0.60-1.30); GFR ESTIMATED 82
[2023-05-13 11:40] LABS: BUN/CREATININE RATIO 12
[2023-05-13 11:41] LABS: ALANINE AMINOTRANSFERASE 20 U/L (0-55)
[2023-05-13 13:25] VITALS: BP_SYST 109; BP_SYST 144; BP_SYST 80; BP_DIAS 52; BP_DIAS 70; BP_DIAS 84
[2023-05-13] MEDS: NS IV 500 ML 500 ML IV ONE ×2 (13:44→15:02)
[2023-05-13] MEDS ORDERED: NS IV 1000 ML 1,000 ML IV STA (14:42)
[2023-05-13 15:54] VITALS: BP_SYST 131; BP_SYST 159; BP_SYST 77; BP_DIAS 58; BP_DIAS 83; BP_DIAS 85
[2023-05-13 16:11] LABS: BACTERIA,URINE TRACE /HPF; CLARITY,URINE CLEAR; COLOR,URINE YELLOW; GLUCOSE, URINE (UA) NEGATIVE (NEGATIVE); KETONES,URINE TRACE (NEGATIVE); LEUKOCYTE ESTERASE ,URINE NEGATIVE (NEGATIVE); NITRITE,URINE NEGATIVE (NEGATIVE); PROTEIN,URINE 2+ (NEGATIVE); SQUAMOUS EPITHELIAL CELL,UR RARE /HPF; WBC,URINE RARE /HPF
[2023-05-13 16:12] LABS: AMORPHOUS SEDIMENT,UR MOD AMOR URATES /LPF; CALCIUM OXALATE CRYSTALS,UR RARE /LPF
[2023-05-13] MEDS ORDERED: ASPIRIN 81 MG CHEWABLE TABLET PO ONE (16:15)
[2023-05-13 16:20] LABS: BILIRUBIN,URINE 2+ (NEGATIVE)
[2023-05-13 17:12] VITALS: BP 118/84
[2023-05-13] MEDS ORDERED: ONDANSETRON INJECTION 4 MG/2 ML (SDV) IV PRN (17:30)
[2023-05-13] MEDS ORDERED: CATHETER FLUSH 10 ML SYR IVP PRN (17:30)
[2023-05-13] MEDS: NS IV 1000 ML 1,000 ML IV SCH (17:39)
[2023-05-13 19:30] VITALS: BP 119/69
[2023-05-13 23:25] VITALS: BP 165/80
[2023-05-14 03:53] VITALS: BP 157/65
[2023-05-14 05:31] LABS: BASOPHILS # (AUTO) 0.1 10^3/uL (0.0-0.1); BASOPHILS % (AUTO) 1 % (0-10); EOSINOPHILS # (AUTO) 0.2 10^3/uL (0.0-0.3); EOSINOPHILS % (AUTO) 3 % (0-10); HEMATOCRIT 40 % (40-54); LYMPHOCYTES # (AUTO) 2.5 10^3/uL (1.0-4.0); LYMPHOCYTES % (AUTO) 38 % (12-44); MEAN CORPUSCULAR HEMOGLOBIN 31 pg (25-34); MEAN CORPUSCULAR HGB CONC 35 g/dL (32-36); MEAN CORPUSCULAR VOLUME 89 fL (80-99); MEAN PLATELET VOLUME 10.9 fL (9.0-12.2); MONOCYTES # (AUTO) 0.7 10^3/uL (0.0-1.0); MONOCYTES % (AUTO) 10 % (0-12); NEUTROPHILS # (AUTO) 3.2 10^3/uL (1.8-7.8); NEUTROPHILS % (AUTO) 49 % (42-75); PLATELET COUNT 178 10^3/uL (130-400); WHITE BLOOD COUNT 6.7 10^3/uL (4.3-11.0)
[2023-05-14 05:52] LABS: CALCIUM 8.6 MG/DL (8.5-10.1); CREATININE SERUM 0.83 MG/DL (0.60-1.30)
[2023-05-14] MEDS: NS IV 1000 ML 1,000 ML IV SCH (07:00)
[2023-05-14 07:15] VITALS: BP 155/91
[2023-05-14] MEDS ORDERED: ASPIRIN 81 MG CHEWABLE TABLET PO SCH (09:00)
--- NOTE | 2023-05-14 09:23 | Short Stay Summary-Hospitalist ---
History of Present Illness HPI/Chief Complaint Patient is 72-year-old male who presented to the emergency department due to weakness and fall. He was admitted last week for similar and was found to have orthostatic hypotension. He was told to stop taking his antihypertensives and was advised to wear compression socks. He has quit taking his antihypertensives but he has not worn compression socks as they have been hard to get on. He was given IV fluids and his blood pressure improved. He reports feeling much better today. He worked with physical therapy and did well. He had orthostatics checked again and while they did drop they did not drop into the 70s like they did in the emergency room yesterday and he was asymptomatic. He reports it is a very busy time for him at work and he needs to be discharged today in order to get contract signed for his [employer] agency. Source: patient Date Seen 05/14/23 Time Seen by a Provider: 09:23 Attending Physician Alphonse Alicia MD PCP Admitting Physician: Alison Ramesh MD Attending Physician: Alison Ramesh MD Referring Physician Date of Admission May 13, 2023 at 16:46 Home Medications & Allergies Home Medications Reviewed patient Home Medication Reconciliation performed by pharmacy medication reconciliations master automotive technician and/or nursing. Patients Allergies have been reviewed. Allergies Allergies Coded Allergies No Known Drug Allergies (Unverified05/13/23) Past Edioeun-Zceoiy-Vknhtn Hx Patient Social History Marrital Status: Tobacco Use?: No Smoking Status: Never a Smoker Substance use?: No Alcohol Use?: Yes Alcohol type: Beer Alcohol Frequency: Rarely Pt feels they are or have been: No Immunizations Up To Date Date of Influenza Vaccine: Jun 23, 2016 Seasonal Allergies Seasonal Allergies: Yes Current Status Advance Directives: Yes Advance Directive Location: Family to bring in copy Communicates: Verbally Primary Language: Togolese Preferred Spoken Language: Togolese Is interpretation needed?: No Implanted or Applied Medical D: None Past Medical History Surgeries: Adenoidectomy, Tonsillectomy Asthma Hypertension Sexually Transmitted Disease: No HIV/AIDS: No Fractures Blood Disorders: No Family Medical History Reviewed Nursing Family Hx Heart Disease, COPD Review of Systems Constitutional: see HPI Physical Exam Physical Exam Vital Signs Vital Signs - First Documented 05/13/23 05/14/23 11:13 07:15 Temp 35.7 Pulse 67 Resp 16 B/P (MAP) 123/77 (92) Pulse Ox 97 O2 Delivery Room Air O2 Flow Rate 6.00 Capillary Refill : Less Than 3 Seconds Height, Weight, BMI Height: 6'4.00" Weight: 262lbs. 0oz. [id number]; 29.53 BMI Method:Stated General Appearance: No Apparent Distress, WD/WN Respiratory: Lungs Clear, No Accessory Muscle Use, No Respiratory Distress Cardiovascular: Regular Rate, Rhythm, No Murmur Gastrointestinal: Normal Bowel Sounds, Non Tender, Soft Neurologic/Psychiatric: Alert, Oriented x3, Normal Mood/Affect, Other (Confused about place but otherwise knows person and time) Skin: Normal Color, Warm/Dry Results Results/Procedures Labs Laboratory Tests 05/13/23 11:10 05/14/23 05:21 Patient resulted labs reviewed. Short Stay Diagnosis Discharge Diagnosis-Short Stay Admission Diagnosis Orthostatic hypotension Final Discharge Diagnosis Orthostatic hypotension Conclusion Plan Orthostatic hypotension DC all BP meds Advised to wear compression socks Discussed stopping sodium limits in his diet Encouraged adequate hydration, especially with the excessive heat (117 heat index this week) Offered home health- they declined Social work consulted Patient insistent on DC home as he has to get contracts signed for his [employer] business Diagnosis/Problems Diagnosis/Problems (1) Orthostatic hypotension Status: Acute ALISON RAMESH MD May 14, 2023 09:23
--- NOTE | 2023-05-14 09:27 | Discharge Inst-Simple/Standard ---
Discharge Inst-Standard Patient Instructions/Follow Up Plan of Care/Instructions/FU: Please continue to take your medications as written. Please follow up with your primary care doctor to follow up this hospital stay. Activity as Tolerated: Yes Discharge Diet: No Restrictions Return to The Hospital For: Chest pain, shortness of breath, fever, weakness, if you feel you are getting worse. JORGE WALKER MD May 14, 2023 09:27
--- NOTE | 2023-05-14 10:15 | Physical Therapy Evaluation ---
PT Evaluation-General Medical Diagnosis Admission Date May 13, 2023 at 16:46 Medical Diagnosis: orthostatic hypotension Onset Date: May 13, 2023 Therapy Diagnosis Therapy Diagnosis: debility Height/Weight Height (Feet): 6 Height (Inches): 4.00 Weight (Pounds): 262 Weight (Ounces): 0 Precautions Precautions/Isolations: Standard Precautions Referral Physician: Gadiel Reason for Referral: Evaluation/Treatment Medical History Pertinent Medical History: HTN Current History EMS secondary to dizziness Reviewed History: Yes Social History Home: Multilevel Current Living Status: Spouse Entry Into Home: Stairs With Railing PT Steps Inside Home: 7 (split level home) Prior Prior Level of Function SCALE: Activities may be completed with or without assistive devices. 1-Hrwgapvalg-pkxaxpn completes the activity by him/herself with no assistance from a helper. 5-Set-up or Clean-up Assistance-helper sets up or cleans up; patient completes activity. [place] assists only prior to or following the activity. 4-Supervision or Touching Assistance-helper provides verbal cues and/or touching/steadying and/or contact guard assistance as patient completes activity. Assistance may be provided throughout the activity or intermittently. 3-Partial/Moderate Assistance-helper does LESS THAN HALF the effort. [place] lifts, holds or supports trunk or limbs, but provides less than half the effort. 2-Substantial/Maximal Assistance-helper does MORE THAN HALF the effort. [place] lifts or holds trunk or limbs and provides more than half the effort. 7-Wlwkjpwlk-ifuvgs does ALL the effort. Patient does none of the effort to complete the activity. Or, the assistance of 2 or more helpers is required for the patient to complete the activity. If activity was not attempted, code reason: 7-Patient Refused. 9-Not Applicable-not attempted and the patient did not perform the activity before the current illness, exacerbation or injury. 10-Not Attempted due to Environmental Limitations-(lack of equipment, weather restraints, etc.). 88-Not Attempted due to Medical Conditions or Safety Concerns. Bed Mobility: 6 Transfers (B,C,W/C): 6 Gait: 6 Stairs: 6 Indoor Mobility (Ambulation): Independent Stairs: Independent Prior Devices Use: None PT Evaluation-Current Subjective Patient reports he has been outside in the heat. He reports his PCP told him to eat more salt. Objective Patient Orientation: Normal For Age ROM/Strength ROM Lower Extremities bilateral LE WFL Strength Lower Extremities 4/5 grossly bilateral LE all planes Integumentary/Posture Bowel Incontinence: No Bladder Incontinence: No Posture WFL Neuromuscular (Tone, Coordination, Reflexes) grossly intact Sensory Vision: Functional Hearing: Functional Transfers Lying to Sitting/Side of Bed(Q: 6 Sit to Stand (QC): 4 Gait Mode of Locomotion: Walk Anticipated Mode of Locomotion: Walk Walk 10 feet (QC): 4 Walk 50 ft with 2 Turns(QC): 4 Walk 150 ft (QC): 4 Distance: 200' x 2 Gait Assistive Device: None Comments/Gait Description no deviation/functional gait sequence Stairs #of Steps: 12 1 Step (curb) (QC): 4 4 Steps (QC): 4 12 Steps (QC): 4 Balance Sitting Static: Normal Sitting Dynamic: Normal Standing Static: Fair Standing Dynamic: Fair Assessment/Needs Patient will be seen x 2 session this week to address functional mobility with orthostatic hypotension testing to ensure safe return to home with spouse at maximum LOF. Rehab Potential: Fair PT Short Term Goals Short Term Goals Time Frame: May 15, 2023 Roll Left & Right: 6 Sit to lyin Lying to sitting on side of be: 6 Sit to stand: 6 Chair/irj-gj-vvkyz transfer: 6 Toilet transfer: 6 Walk 10 feet: 6 Walk 50 feet with two turns: 6 Walk 150 feet: 6 1 step (curb): 6 4 steps: 6 12 steps: 6 PT Plan Problem List Problem List: Activity Tolerance, Safety Treatment/Plan Treatment Plan: Continue Plan of Care Treatment Plan: Education, Functional Activity Patrick, Functional Strength, Gait, Safety, Therapeutic Exercise, Transfers Treatment Duration: May 15, 2023 Frequency: 2 times per week Estimated Hrs Per Day: .25 hour per day Patient and/or Family Agrees t: Yes Time Time In: 920 Time Out: 951 DATE: May 14, 2023 Total Billed Treatment Time: 31 Total Billed Treatment 1 visit EVModC 10 min FA 21 min STIVEN MUKHERJEE PT May 14, 2023 10:15
[2023-05-14 10:34] VITALS: BP_SYST 103; BP_SYST 163; BP_SYST 172; BP_DIAS 53; BP_DIAS 79; BP_DIAS 83
[2023-05-14 11:27] VITALS: BP 137/75
[2023-05-14 12:19] VITALS: BP 137/75
== END 2023-05-14 14:25 | disposition home or self-care (01) ==
LOC: EDUNIT# 11:12 → ER 11:13 → 4TH 16:46 → UNDOADMOB 16:46 → 4TH 17:05 → UNDODISOB 05-14 14:25
PROVIDERS: ADMIT Family Medicine; ATTEND Family Medicine
DX: I95.1 Orthostatic hypotension (principal)
CPT/HCPCS: 80048; 80053; 81000; 83735; 84443; 84484; 85025 ×2; 86141; 93005; 93041; 97162; 97530; 99284; G0378; 36415